=== PATIENT | female | born 1940 | race Caucasian/White ===

== ENCOUNTER 2016-06-20 07:07 | Day surgery (SDC) ==
[2014-10-15 11:42] VITALS: BMI 31.1
[2016-06-20] MEDS ORDERED: LIDOCAINE 1% 20 ML MDV ONE (07:10)
[2016-06-20] MEDS ORDERED: LIDOCAINE 1% 20 ML MDV ID ONE (07:18)
[2016-06-20] MEDS ORDERED: DIPRIVAN 20 ML VIAL IVP ONE (09:00)
[2016-06-20] MEDS ORDERED: VERSED ONE (09:00)
[2016-06-20 14:00] VITALS: BP 117/50; TEMP 96.8
--- NOTE | 2016-06-20 14:53 | OP ---
INDICATIONS FOR PROCEDURE: 76-year-old female presents complaining of dysphagia intermittently to solid foods only. She also has some post prandial fullness at times. MEDICATIONS: SEE ANESTHESIA NOTES. PROCEDURE: ENDOSCOPY, CARLYLE BIOPSY, GASTRIC BIOPSY, ENDOCLIP AND IRISH DILATATION. REPORT: The risks, benefits, alternatives and limitations were discussed in detail with the patient. Informed consent was obtained. After adequate sedation was achieved, the video endoscope was introduced in the posterior pharynx and esophagus under direct vision and easily advanced down to the second portion of the duodenum. I then slowly withdrew. The duodenal mucosa appeared unremarkable as did the duodenal bulb. The antrum and body were relatively unremarkable except for a small raised polypoid type nodule in the antrum. This was about 5 mm in size. I biopsied it several times. It did continuously ooze blood. I went ahead and biopsied the antrum and body for H. Pylori testing. The scope was retroflexed to look at the cardia and fundus which revealed several small fundic type polyps. I relooked at the small polypoid nodule on the antrum and it continued to ooze blood so I elected to place an endoclip over the top of it. Once this was placed, it did not ooze any additional blood. I would estimate only a couple cc's oozed. I then withdrew the scope back through the esophagus which revealed no abnormalities in its entire length. I advanced the scope back down the gastric lumen and I placed a guidewire and withdrew the scope. Over the guidewire I then easily advanced a 54 [place] dilator. The patient tolerated the procedure well with stable vital signs and pulse oximetry throughout. IMPRESSION: 1. SMALL POLYPOID ANTRAL NODULE ABOUT 5 MM IN SIZE BIOPSIED AND CLIPPED ABOVE. 2. SEVERAL SMALL FUNDIC TYPE POLYPS IN THE PROXIMAL BODY AND FUNDIC AREA. 3. SUCCESSFUL PASSIVE DILATATION OF THE ESOPHAGUS. RECOMMENDATIONS: 1. Await biopsy results to confirm benign nature. 2. Await H. Pylori; if it is positive, will initiate treatment. 3. Advised her to make sure she takes her time to cut and chew her food well , eat slowly and small meals throughout the day. 4. Will have her come back in the office and see us if she continues to have trouble or if there are any concerns. CC: DR. BELEN MERCADO
== END 2016-06-20 10:35 | disposition home or self-care (01) ==
LOC: SURG 07:07
PROVIDERS: ATTEND Internal Medicine Gastroenterology
DX: R13.10 Dysphagia, unspecified (principal); D13.1 Benign neoplasm of stomach; B96.81 Helicobacter pylori [H. pylori] as the cause of diseases classified elsewhere; K31.9 Disease of stomach and duodenum, unspecified
CPT/HCPCS: 87339

== ENCOUNTER 2016-06-28 13:57 | Emergency (ER) ==
[2016-06-28 14:02] VITALS: BP 189/90; TEMP 97.6; BMI 30.4
--- NOTE | 2016-06-28 15:12 | CT ---
EXAM: CT pelvis without contra HISTORY: Pain, fall COMPARISON: 09/17/2012 TECHNIQUE: CT pelvis performed without intravenous contrast. Coronal and sagittal reformatted imag es obtained. FINDINGS: Please see separate report CT lumbar spine regarding findings in the lumbar spine. Bones appear demineralized. There is right hip arthroplasty. There is mild to moderate osteoarthritis le ft hip with joint space narrowing and osteophyte formation. There is enthesopathy, left greater and lesser trochanter. Sacroiliac joints intact with mild degenerative change. No fracture or disloca tion. There is colonic diverticulosis. Patient status post hysterectomy. There is atherosclerosis . There is an electronic stimulator or in the right subcutaneous tissues that is incompletely image d. There is a number there is a 2.0 x 7.6 x 8.6 cm high attenuation collection with surrounding str anding in the subcutaneous tissues of the right gluteal region, consistent with hematoma. IMPRESSION: 1. Right gluteal subcutaneous hematoma measuring up to 8.6 cm. 2. No fracture or dislocation. 3. Right hip arthroplasty. 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
--- NOTE | 2016-06-28 15:13 | DI ---
EXAM: Right elbow three views HISTORY: Pain COMPARISON: None FINDINGS: No acute fracture or dislocation. Mild calcification about the medial and lateral epicon dyle may be due to old trauma or epicondylitis. Well marginated ossification near the coronoid may b e degenerative or due to old trauma or ossification center. No joint effusion. No focal soft tissue abnormality. IMPRESSION: No acute fracture or dislocation.
--- NOTE | 2016-06-28 15:13 | DI ---
Exam: Right shoulder three views History: Pain Findings: AP internal and external rotation as well as transscapular views were obtained and demons trates faint degenerative soft tissue calcifications in relationship to the right acromioclavicular joint. There is also a small amount of spurring noted. There is spurring seen arising from the sup erior aspect of the acromion process. Degenerative changes seen in relationship to the humeral tube rosity. Right humeral head in satisfactory relationship to the acromion process and glenoid. Right shoulder joint space appears normal in width. Impression: Arthritic changes of the right shoulder most evident at the level of the right acromioc lavicular joint and superior aspect of the acromion process as described.
--- NOTE | 2016-06-28 15:17 | CT ---
Examination: Noncontrast helical CT images of the lumbar spine. Comparison: 09/17/2012. Reason for study: Pain. FINDINGS: No acute fracture or listhesis. There is a small amount of artifact from the spinal elec trode and pedicle screws. T11-T12: Spinal electrode is noted without obvious central cord narrowing. There is mild foraminal stenosis on the left due to facet hypertrophy. T12-L1: Mild narrowing of the central canal combination of partially calcified disc and posterior t o the longitudinal ligament with mild foraminal narrowing bilaterally and artifact in the spine. El ectrode. L1-L2: Mild impression on the central canal with foraminal narrowing due to a combination of ligame ntous and disc hypertrophy with calcification and facet arthropathy. L2-L3: There is mild central canal narrowing due to a combination of partially calcified disc and l igamentous hypertrophy with foraminal narrowing bilaterally secondary to disc and facet hypertrophy. L3-L4: Typically benign appearing low density lesion in the L3 vertebral body with a small amount o f central canal narrowing secondary to eight calcified disc and ligamentous complex with mild forami nal narrowing. L4-L5: Bilateral pedicle screws with minimal central canal narrowing and minimal foraminal narrowin g secondary to calcified ligamentous and disc complex with facet hypertrophy. L5-S1: Marked narrowing of the intervertebral body disc space height with a partially calcified broa d-based disc bulge and ligamentous complex without significant foraminal stenosis. Impression: 1. No acute fracture or listhesis. 2. 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
--- NOTE | 2016-06-28 15:36 | ED.PDOC ---
General ED Provider: Dr. REGAN SCHULTE Chief Complaint: Fall Stated Complaint: injury fall Time Seen by Physician: 14:00 Mode of Arrival: Walk-In Information Source: Patient Exam Limitations: No limitations Primary Care Provider: GEN GLOVER Nursing and Triage Documentation Reviewed and Agree: Yes Trauma/Injury Complaint Exam - Trauma Complaint/Exam Location of Pain or Injury: Reports: Other (buttoc pain) Onset/Duration: 1 hr Symptoms Are: Still present Timing of Treatment: Immediate Initial Severity: Moderate Current Severity: Moderate Character: Reports: Pressure Aggravating: Reports: None (lost balance and fell standing postion has right elbow , shoulder and buttock pain ) Alleviating: Reports: None Related History: Reports: Similar episode Nexus Low Risk Criteria: No post-midline CS tender, No evidence of intoxicat., No Altered LOC, No focal neuro deficit, No distracting injuries Glascow Coma Scale (see protocol): 15 Skin Findings: Present: Tenderness Differential Diagnoses: Sprain, Strain Review of Systems - Review Of Systems Constitutional: Reports: No symptoms Eyes: Reports: No symptoms Ears, Nose, Mouth, Throat: Reports: No symptoms Respiratory: Reports: No symptoms Cardiac: Reports: No symptoms GI: Reports: No symptoms : Reports: No symptoms Musculoskeletal: Reports: Joint pain (right elbow, right shoulder ) Skin: Reports: No symptoms Neurological: Reports: No symptoms Endocrine: Reports: No symptoms Hematologic/Lymphatic: Reports: No symptoms All Other Systems: Reviewed and Negative Past Medical History - Past Medical History Previously Healthy: Yes Endocrine: Reports: None Cardiovascular: Reports: None Respiratory: Reports: None Hematological: Reports: None Gastrointestinal: Reports: None Genitourinary: Reports: None Neuro/Psych: Reports: None Musculoskeletal: Reports: None Cancer: Reports: None Last Menstrual Period: 2005 - Surgical History General Surgical History: Reports: None - Family History Family History: Reports: None - Social History Smoking Status: Never smoker Hx Substance Use: No Alcohol Screening: None - Immunizations Tetanus Shot up to Date: Yes Physical Exam - Physical Exam Appearance: Well-appearing, No pain distress, Well-nourished Eyes: NALINI, EOMI, Conjunctiva clear ENT: Ears normal, Nose normal, Oropharynx normal Respiratory: Airway patent, Breath sounds clear, Breath sounds equal, Respirations nonlabored Cardiovascular: RRR, Pulses normal, No rub, No murmur GI/: Soft, Nontender, No masses, Bowel sounds normal, No Organomegaly Musculoskeletal: Limited ROM ( right shoulder ) Skin: Warm, Dry (warm firm prominence right buttock) Neurological: Sensation intact, Motor intact, Reflexes intact, Cranial nerves intact, Alert, Oriented Psychiatric: Affect appropriate, Mood appropriate Critical Care Note - Critical Care Note Total Time (mins): 0 Course - Course Orders, Labs, Meds: Orders Category Date Time Status CT LUMBAR SPINE W/O CONTRAST Stat RADS 06/28/16 14:[address] PELVIS W/O CONTRAST Stat RADS 06/28/16 14:16 Completed ELBOW, RIGHT MIN 3 VIEWS Stat RADS 06/28/16 14:15 Completed SHOULDER, RIGHT MIN 2V Stat RADS 06/28/16 14:15 Completed Vital Signs: Temp Pulse Resp BP Pulse Ox 06/28/16 13:57 97.6 F 69 20 189/90 H 96 Departure - Departure Time of Disposition: 15:39 Disposition: HOME SELF-CARE Discharge Problem: Falls, Hematoma Instructions: Hematoma (ED) Condition: Good Pt referred to PMD for follow-up: No Additional Instructions: Please call your Family Physician as soon as possible to schedule a follow-up appointment. Allergies/Adverse Reactions: Allergies No Known Allergies Allergy (Unverified 10/15/14 11:50) Home Medications: Ambulatory Orders Carvedilol [Coreg] 6.25 mg PO BIDWM 10/15/14 Cyclobenzaprine HCl [Flexeril] 10 mg PO BID PRN 10/15/14 Escitalopram Oxalate [Lexapro] 20 mg PO DAILY 10/15/14 Nifedipine [Procardia Xl] 30 mg PO DAILY 10/15/14 Esomeprazole Magnesium 40 mg PO DAILY 03/02/16 Fentanyl 1 each TD Q72H 03/02/16 Levothyroxine Sodium 100 mcg PO DAILY 03/02/16 Lisinopril 20 mg PO DAILY 03/02/16 Azelastine HCl [Astelin 0.1%] 2 spray NS BID 06/20/16 Morphine Sulfate [Morphine 2 mg/ml Syringe] 0.3746 mg IMPLANT DAILY 06/20/16 Bupropion HCl [Wellbutrin Xl] 150 mg PO BEDTIME #30 06/22/16 Amoxicillin 500 mg PO BID 06/28/16 Metronidazole 500 mg PO QID 06/28/16
== END 2016-06-28 15:45 | disposition home or self-care (01) ==
LOC: ED 13:57
DX: M25.511 Pain in right shoulder (principal); M25.521 Pain in right elbow; M54.5 Low back pain; T14.8 Other injury of unspecified body region; W18.39XA Other fall on same level, initial encounter
CPT/HCPCS: 99283

== ENCOUNTER 2016-11-16 13:31 | Outpatient (CLI) ==
--- NOTE | 2016-11-16 14:05 | DI ---
EXAM: Single PA view of the chest and three views of the left chest wall/ribs HISTORY: Left-sided chest wall pain. COMPARISON: Chest x-ray 03/26/2015 FINDINGS: Cardiomediastinal silhouette is unremarkable. There is no pneumothorax or pleural effusio n. There is no consolidation, nodule or mass. The left ribs demonstrate no cortical irregularity o r displaced fracture. There is no lytic or blastic lesion identified. IMPRESSION: No acute abnormality or displaced fracture of the left ribs.
== END 2016-11-16 13:32 | disposition home or self-care (01) ==
LOC: RAD 13:31
PROVIDERS: ATTEND Family Medicine
DX: R07.89 Other chest pain (principal)

== ENCOUNTER 2017-04-03 08:49 | Day surgery (SDC) ==
[2017-04-03] MEDS ORDERED: VERSED ONE (12:05)
[2017-04-03] MEDS ORDERED: DIPRIVAN 20 ML VIAL IVP ONE (12:05)
[2017-04-03] MEDS ORDERED: SUBLIMAZE ONE (12:05)
[2017-04-03 13:14] VITALS: BP 160/81; TEMP 98.2
--- NOTE | 2017-04-04 10:24 | OP ---
INDICATIONS FOR PROCEDURE: 77-year-old female presents for endoscopy evaluation. She has intermittent dysphagia. She has had endoscopy with dilatation in the past which has been beneficial. She also has a history of colon polyps, the last colonoscopy two years ago with over ten adenomatous polyps being found and a good to fair prep in place although she tells me that she did not drink her morning prep for her presenting colonoscopy today. MEDICATIONS: SEE ANESTHESIA NOTES. PROCEDURE: 1. ENDOSCOPY, CARLYLE BIOPSY, MAURITANIAN DILATATION 2. COLONOSCOPY, SNARE POLYPECTOMY. REPORT: The risks, benefits, alternatives and limitations were discussed in detail with the patient. Informed consent was obtained. After adequate sedation was achieved, the video endoscope was introduced in the posterior pharynx and esophagus under direct vision. I easily advanced down to the second portion of the duodenum. I then slowly withdrew in a circumferential manner examining the mucosa quite carefully. The duodenal mucosa appeared unremarkable as did the duodenal bulb. The antrum and body were moderately erythematous. There was some nodular inflammation. I obtained two biopsies from the antral wall and from the body for H. Pylori testing. The scope was retroflexed to look at the cardia and fundus which was relatively unremarkable. The scope was anteflexed and withdrawn back through the esophagus which appeared unremarkable its entire length. I advanced the scope back down the gastric lumen and placed the guidewire and withdrew the scope. Over the guidewire I easily advanced a 54 [place] dilator. The patient tolerated the procedure well with stable vital signs and pulse oximetry throughout. The patient's bed was turned. A digital rectal exam revealed good tone, no mass. The colonoscope was introduced into the rectum and advanced under direct visual guidance to the cecum. The cecum was identified by the appendiceal orifice and IC valve. Unfortunately her prep was fair at best. There was mucus adherent stool scattered throughout the entire colon. I washed and rinsed this off as best as I could as I advanced the scope and then again as I withdrew the scope. I withdrew the scope in a circumferential manner examining the mucosa quite carefully. I looked on the proximal and distal side of folds and flexures as best as possible. In the ascending colon there is a small sessile 5 mm polyp that I removed and destroyed using a snare. In the descending colon there was a similar polyp that I destroyed using a snare. No other abnormalities were noted throughout the colon including on retroflex views of the anal canal. Again, the prep was fair at best with the patient not drinking her recommended morning split dose of the prep. Withdrawal time is 9 minutes and 56 seconds. The patient tolerated the procedure well with stable vital signs and pulse oximetry throughout. IMPRESSION: 1. SUCCESSFUL PASSIVE DILATATION OF THE ESOPHAGUS 2. MODERATE GASTRITIS 3. TWO SMALL COLON POLYPS DESTROYED 4. FAIR PREP RECOMMENDATIONS: 1. Strict reflux precautions. 2. Cut and chew food well. 3. Limit NSAIDs. 4. Await H. Pylori if positive will initiate treatment. 5. Due to the fair prep I recommend repeat colonoscopy examination again in one year since she does have a history of numerous adenomatous polyps in the past. I reinforce the need to follow the guidelines for taking the prep completely. 6. Office visit as needed. CC: DR. BELEN MERCADO
== END 2017-04-03 13:25 | disposition home or self-care (01) ==
LOC: SURG 08:49
PROVIDERS: ATTEND Internal Medicine Gastroenterology
DX: Z09 Encounter for follow-up examination after completed treatment for conditions other than malignant neoplasm (principal); Z86.010 Personal history of colon polyps; K29.70 Gastritis, unspecified, without bleeding; K63.5 Polyp of colon; R13.19 Other dysphagia
CPT/HCPCS: 87339

== ENCOUNTER 2017-09-24 11:41 | Outpatient (CLI) ==
--- NOTE | 2017-09-24 13:51 | DI ---
EXAM: Chest two views HISTORY: Dyspnea COMPARISON: 11/16/2016 TECHNIQUE: Two views of the chest were performed FINDINGS: No airspace consolidation. Granulomatous calcification. There is no pleural effusion or pneumothorax. The heart is normal in size. The mediastinal contour is normal. There are no acute a bnormalities of the bones. IMPRESSION: No acute cardiopulmonary process.
== END 2017-09-24 11:42 | disposition home or self-care (01) ==
LOC: RAD 11:41
PROVIDERS: ATTEND Family Medicine
DX: R06.00 Dyspnea, unspecified (principal)

== ENCOUNTER 2017-11-30 10:31 | Outpatient (CLI) ==
--- NOTE | 2017-11-30 12:38 | CT ---
EXAM: CT head without contrast. HISTORY: Headache. Nausea. COMPARISON: 04/20/2008. TECHNIQUE: Multiple axial images of the brain were obtained from the skull base through the vertex w ithout intravenous contrast. Multiplanar reformats were provided. FINDINGS: There is no intracranial hemorrhage or extraaxial collection. The villavicencio-white differentiat ion is maintained without evidence for acute large vascular territory infarction. There are areas of periventricular and subcortical white matter low attenuation. The cortical sulci and cerebral ventr icles are symmetrically enlarged. The basal cisterns are well visualized. There is no hydrocephalus , mass effect, or midline shift. The paranasal sinuses and mastoid air cells are clear. The calvari um is intact. IMPRESSION: 1. No acute intracranial abnormality. 2. Chronic small vessel ischemic changes and atrophy.
--- NOTE | 2017-11-30 12:44 | CT ---
EXAM: CT cervical spine without contrast. HISTORY: Neck pain. COMPARISON: None available. TECHNIQUE: Multiple axial images of the cervical spine were obtained without intravenous contrast. Images were reformatted in the sagittal and coronal planes. FINDINGS: There is normal curvature and alignment. Vertebral body heights are maintained. No fract ure or subluxation is seen. The prevertebral soft tissues are unremarkable. C2-3: Facet arthropathy without neural compromise. C3-4: Uncovertebral hypertrophy and facet arthropathy with moderate right and mild left neural gia inal narrowing. C4-5: Uncovertebral hypertrophy and facet arthropathy with moderate neural foraminal narrowing bilat erally. C5-6: Disc osteophyte formation, uncovertebral hypertrophy and facet arthropathy with mild central c anal stenosis and mild right and moderate to severe left neural foraminal narrowing. C6-7: Disc osteophyte formation, uncovertebral hypertrophy and facet arthropathy with mild moderate central canal stenosis and moderate to severe right neural foraminal narrowing. C7-T1: No neural compromise. IMPRESSION: Multilevel degenerative changes, greatest at C5-6 and C6-7.
--- NOTE | 2017-11-30 12:59 | CT ---
EXAM: CT lumbar spine without contrast. HISTORY: Low back pain. COMPARISON: 06/28/2016. TECHNIQUE: Multiple axial images of the lumbar spine were obtained without intravenous contrast. Im ages were reformatted in the sagittal and coronal planes. FINDINGS: There has been previous fusion of the posterior elements from L3-4 through L5-S1. Screws are present through the pedicles of L4 and L5. Hardware appears intact. There is approximately 0.2 cm anterolisthesis of L3 on L4 per alignment is otherwise normal. There is mild right convex curvatu re centered near L3. Vertebral body heights are maintained without fracture. Paravertebral soft tis sues without acute abnormality. Benign adrenal nodules seen bilaterally. Atherosclerotic calcificat ions are present. Colonic diverticulosis noted. Osteoarthritis of both sacroiliac joints, greater o n the right noted. T12-L1: Disc osteophyte formation and facet arthropathy with flattening of the ventral thecal sac an d moderate bilateral neural foraminal narrowing. L1-2: Disc osteophyte formation, facet arthropathy and thickening of ligamentum flavum with moderate central canal stenosis and moderate right and severe left neural foraminal narrowing. L2-3: Disc osteophyte formation, facet arthropathy and thickening of ligamentum flavum with mild divya tral canal stenosis and mild right and severe left neural foraminal narrowing. L3-4: Disc osteophyte formation and facet arthropathy with flattening of the ventral thecal sac. L4-5: Disc osteophyte formation and facet arthropathy with mild central canal stenosis and right grabiel ral foraminal narrowing. L5-S1: Disc osteophyte formation and facet arthropathy with moderate neural foraminal narrowing. Buyer Assistant view demonstrates a right-sided electronic device projecting over the iliac wing. IMPRESSION: 1. No fracture. 2. Multilevel degenerative changes as described, not significantly changed since the prior study.
== END 2017-11-30 10:32 | disposition home or self-care (01) ==
LOC: RAD 10:31
PROVIDERS: ATTEND Family Medicine
DX: G89.4 Chronic pain syndrome (principal)

== ENCOUNTER 2018-03-05 08:44 | Day surgery (SDC) | payer OTHER ==
[2018-03-05] MEDS ORDERED: DIPRIVAN 20 ML VIAL IVP ONE (11:41)
[2018-03-05] MEDS ORDERED: SUBLIMAZE ONE (11:41)
[2018-03-05] MEDS ORDERED: VERSED ONE (11:41)
[2018-03-05 16:06] VITALS: BP 128/56; TEMP 98.4
--- NOTE | 2018-03-06 13:21 | OP ---
INDICATIONS FOR PROCEDURE: 78-year-old female presents for endoscopy exam. She complains of intermittent chest pressure. She states like she feels full after she eats at times. She has had a negative cardiac workup. She has been doing well over the last two weeks. She states her symptoms have subsided. She occasionally feels like she has a little bit of difficulty swallowing as well. MEDICATIONS: SEE ANESTHESIA NOTES. PROCEDURE: ENDOSCOPY, CARLYLE BIOPSY, GASTRIC BIOPSY, AZERBAIJANI DILATATION. REPORT: The risks, benefits, alternatives and limitations were discussed in detail with the patient. Informed consent was obtained. After adequate sedation was achieved, the video endoscope was introduced in the posterior pharynx and esophagus under direct vision and easily advanced down to the second portion of the duodenum. I then slowly withdrew. The duodenal mucosa appeared unremarkable as did the duodenal bulb. The antrum and body were relatively unremarkable. In the antrum there was a small inflammatory type nodule. It was about 6 mm in size and raised. It was on the greater curvature. It was biopsied for histologic review. Two biopsies from the antral wall and body obtained for H. Pylori test. The scope was retroflexed to look at the cardia and fundus which was unremarkable. The scope was anteflexed and withdrawn back through the esophagus which was unremarkable. The scope was advanced back down the gastric lumen. I placed a gastric wire and I withdrew the scope. Over the wire, I easily advanced a 54 [place] dilator. The patient tolerated the procedure well with stable vital signs and pulse oximetry throughout. IMPRESSION: 1. INFLAMMATORY TYPE NODULE IN THE ANTRUM, BIOPSIED. 2. OTHERWISE UNREMARKABLE EXAM. 3. SUCCESSFUL PASSIVE DILATATION OF THE ESOPHAGUS. RECOMMENDATIONS: 1. She is currently doing better. I recommend strict reflux precautions. I suggested she eat small meals throughout the day. I also suggested that she try an [id number] H2 teddy such as Pepcid AC p.r.n. for breakthrough chest discomfort and nausea associated with larger meals. 2. Will see her back in the office as needed. 3. Await H. Pylori and if positive, will initiate treatment. CC: DR. BELEN MERCADO
== END 2018-03-05 12:50 | disposition home or self-care (01) ==
LOC: SURG 08:44
PROVIDERS: ATTEND Internal Medicine Gastroenterology
DX: R07.89 Other chest pain (principal); R13.10 Dysphagia, unspecified; R22.9 Localized swelling, mass and lump, unspecified
CPT/HCPCS: 87339

== ENCOUNTER 2018-07-23 07:07 | Day surgery (SDC) | payer OTHER ==
[2018-07-23 07:59] VITALS: TEMP 97.6
[2018-07-23] MEDS ORDERED: LIDOCAINE 1% 20 ML MDV ID STA (08:00)
[2018-07-23] MEDS ORDERED: DIPRIVAN 20 ML VIAL IVP ONE (09:40)
[2018-07-23] MEDS ORDERED: VERSED ONE (09:40)
[2018-07-23 12:29] VITALS: BP 132/67
--- NOTE | 2018-07-24 10:34 | OP ---
INDICATIONS FOR PROCEDURE: Temitope presents for colonoscopy exam. She has a past history of adenomatous polyps with her last colonoscopy 3 years ago. MEDICATIONS: SEE ANESTHESIA NOTES. PROCEDURE: COLONOSCOPY. SNARE POLYPECTOMY. REPORT: The risks, benefits, alternatives and limitations were discussed in detail with the patient. Informed consent was obtained. After adequate sedation was achieved, a digital rectal exam revealed good tone, no masses. The colonoscope was introduced into the rectum and advanced under direct visual guidance to the cecum. The cecum was identified by the appendiceal orifice and IC valve. I then slowly withdrew the scope in circumferential manner and examined the mucosa quite carefully. I looked on the proximal and distal sides of folds and flexures as best as possible. I was able to retroflex the scope in the right colon and the left colon to increase visualization. In the ascending colon there was a 6 or 7 mm semi-sessile polyp and I removed this by snare technique. In the mid and distal transverse colon there was 3 polyps ranging in size from 5-6mm, they were semi-sessile and all three were removed by snare technique. There is scattered small mouth diverticulosis noted in the sigmoid, only a few. Retroflex view of the anal canal was unremarkable. The prep was good and no other abnormalities were noted. The patient tolerated the procedure well with stable vital signs and pulse oximetry throughout. IMPRESSION: 1. 4 polyps successfully removed 2. Diverticulosis RECOMMENDATIONS: 1. High fiber diet 2. Office visit as needed 3. Await polyp pathology and if everything is benign. I recommend repeat colonoscopy examination again in 3 years or sooner if signs or symptoms would indicate otherwise. Dr. Nimesh Farley. [facility] CENTERHaritha
== END 2018-07-23 11:40 | disposition home or self-care (01) ==
LOC: SURG 07:07
PROVIDERS: ATTEND Internal Medicine Gastroenterology
DX: Z86.010 Personal history of colon polyps (principal); D12.2 Benign neoplasm of ascending colon; D12.3 Benign neoplasm of transverse colon

== ENCOUNTER 2018-09-10 12:01 | Outpatient (CLI) ==
--- NOTE | 2018-09-10 12:53 | CT ---
EXAM: CT of the abdomen pelvis without contrast History: Left flank pain. Left lower quadrant abdominal pain. Comparison: CT abdomen pelvis 12/13/2011 Technique: Multiplanar CT images through the abdomen pelvis were obtained without the administration of IV contrast Findings: Lung bases are clear. No acute osseous abnormalities. Degenerative changes of the spine. Postsurgical changes of the lumbar spine. Hemangioma within the L3 vertebral body. Spinal stimula tor device. Status post cholecystectomy. No focal liver or splenic lesions. No peripancreatic inflammation. St able small benign bilateral adrenal adenomas. No renal stones and no hydronephrosis. No perinephric stranding. Atherosclerotic vascular calcifications. No bowel obstruction. Colonic diverticulosis. Mild focal dilatation of the distal appendix but no acute periappendiceal inflammation. Bladder is not well distended. Evaluation of the pelvis is somewhat limited due to beam hardening artifact fro m the right hip arthroplasty. No perirectal inflammation. Impression: 1. No acute intra-abdominal or pelvic process. 2. Colonic diverticulosis. 3. No renal stones and no hydronephrosis. 4. Stable small benign bilateral adrenal adenomas. 5. Mild focal dilatation of the distal appendix but no evidence for acute appendicitis
== END 2018-09-10 12:02 | disposition home or self-care (01) ==
LOC: RAD 12:01
PROVIDERS: ATTEND Family Medicine
DX: M54.5 Low back pain (principal)
CPT/HCPCS: 74176

== ENCOUNTER 2018-09-30 12:52 | Emergency (ER) ==
[2018-09-30 12:57] VITALS: BP 156/79; TEMP 98.9; BMI 31.8
--- NOTE | 2018-09-30 13:57 | DI ---
EXAM: Two views of the chest. History: Cough. Comparison: Chest radiograph 09/24/2017. Findings: Heart size is normal. No focal consolidation. No appreciable pleural fluid and no pneumo thorax. Calcified granulomas are again seen within the thorax. No acute osseous abnormalities. Impression: No acute cardiopulmonary process
[2018-09-30] MEDS ORDERED: ROCEPHIN IM STA (14:33)
[2018-09-30] MEDS ORDERED: LIDOCAINE HCL 1% SDV IM STA (14:33)
[2018-09-30] MEDS ORDERED: ROCEPHIN 1 GM in SODIUM CHLORIDE 50 ML IV STA (14:36)
[2018-09-30] MEDS ORDERED: SODIUM CHLORIDE 1,000 ML IV STA (14:36)
--- NOTE | 2018-09-30 14:57 | ED.PDOC ---
General ED Provider: Dr. REGAN SCHULTE Chief Complaint: Weakness Stated Complaint: weakness Time Seen by Physician: 13:00 (seen with anson ) Mode of Arrival: Walk-In Information Source: Patient Exam Limitations: No limitations Primary Care Provider: GEN GLOVER Nursing and Triage Documentation Reviewed and Agree: Yes Does patient meet sepsis criteria?: No (congestion, cough) System Inflammatory Response Syndrome: Not Applicable Sepsis Protocol: For patient's 13 years and over: Temp is 96.8 and below OR 101 and greater Pulse >90 BPM Resp >20/minute Acutely Altered Mental Status Are patient's symptoms suggestive of a new infection, such as: -Pneumonia -Skin, Soft Tissue -Endocarditis -UTI -Bone, Joint Infection -Implantable Device -Acute Abdominal Infection -Wound Infection -Meningitis -Blood Stream Catheter Infection -Unknown Miscellaneous Complaint Exam - Complex/Multi-System Complaint/Exam Symptoms Are: Still present Initial Severity: Mild Current Severity: Mild Location of Pain: no pain Pain Radiates to: n/a Character: n/a Aggravating: n/a Alleviating: n/a Associated Signs and Symptoms: Reports: Weakness, Cough, Back pain, Dysuria. Denies: Decreased responsiveness, Confusion, Agitation, Dizziness, Syncope, Headache, Short of air, Wheezing, Hemoptysis, Chest pain, Palpitations, Edema, Nausea, Vomiting, Diarrhea, Abdominal pain, Hematemesis, Melena, Decreased oral intake, Fever, Diaphoresis, Immunocompromised, Anticoagulation Therapy, Recent medication changes, Indwelling director medical science, Prior MRSA, Prior VRE, Recent trauma, Remote trauma Recent Echo/LV Function: No Respiratory Distress: None JVD Present: No Tachypnea Present: No Abdominal Findings: Present: Normal findings Glascow Coma Scale (see protocol): 15 Meningeal Signs Positive: No Focal Weakness: Present: None Gait: Normal Gag Reflex Present: Yes Babinski Sign: Negative Right, Negative Left Joint Swelling Present: No In-Dwelling Device Present: No Differential Diagnosis: Metabolic Abnormality Quality Indicators for AMI: EKG in 10min. ( ) Quality Indicator For Non-Traumatic Chest Pain/Syncope: EKG Performed Review of Systems - Review Of Systems Constitutional: Reports: Chills, Malaise Eyes: Reports: No symptoms Ears, Nose, Mouth, Throat: Reports: No symptoms Respiratory: Reports: Cough Cardiac: Reports: No symptoms GI: Reports: No symptoms : Reports: Dysuria Musculoskeletal: Reports: Back pain Skin: Reports: No symptoms Neurological: Reports: No symptoms Endocrine: Reports: No symptoms Hematologic/Lymphatic: Reports: No symptoms All Other Systems: Reviewed and Negative Past Medical History - Past Medical History Previously Healthy: Yes Endocrine: Reports: None Cardiovascular: Reports: None Respiratory: Reports: None Hematological: Reports: None Gastrointestinal: Reports: None Genitourinary: Reports: None Neuro/Psych: Reports: None Musculoskeletal: Reports: None Cancer: Reports: None Last Menstrual Period: NA - Surgical History General Surgical History: Reports: None - Family History Family History: Reports: None - Social History Smoking Status: Never smoker Hx Substance Use: No Alcohol Screening: None - Immunizations Tetanus Shot up to Date: Yes Physical Exam - Physical Exam Appearance: Well-appearing, No pain distress, Well-nourished Eyes: NALINI, EOMI, Conjunctiva clear ENT: Ears normal, Nose normal, Oropharynx normal Respiratory: Airway patent, Breath sounds clear, Breath sounds equal, Respirations nonlabored Cardiovascular: RRR, Pulses normal, No rub, No murmur GI/: Soft, Nontender, No masses, Bowel sounds normal, No Organomegaly Musculoskeletal: Normal strength, ROM intact, No edema, No calf tenderness Skin: Warm, Dry, Normal color Neurological: Sensation intact, Motor intact, Reflexes intact, Cranial nerves intact, Alert, Oriented Psychiatric: Affect appropriate, Mood appropriate Interpretation - Dedenter Rate: Rey Rhythm: Sinus - EKG Interpretation Rate: Rey Rhythm: Sinus Ectopy: None [place]: NL ST Segment: Normal Physician Notification - Case Discussed Physician Notified: pmd Time of Notification: 14:58 (iv fluid with iv antibiotics ask pt to see him in am) Critical Care Note - Critical Care Note Total Time (mins): 0 Course - Course Hematology/Chemistry: 09/30/18 13:26 09/30/18 13:26 Orders, Labs, Meds: Lab Review 09/30/18 09/30/18 09/30/18 13:26 13:26 13:42 WBC 9.93 RBC 4.08 L Hgb 12.2 Hct 37.3 MCV 91.4 MCH 29.9 MCHC 32.7 RDW Coeff of Ashwin 13.2 Plt Count 331 Immature Gran % (Auto) 0.2 Neut % (Auto) 65.8 Lymph % (Auto) 25.2 [place] % (Auto) 7.0 Eos % (Auto) 1.4 Baso % (Auto) 0.4 Immature Gran # (Auto) 0.0 Neut # (Auto) 6.5 Lymph # (Auto) 2.5 Hubbard # (Auto) 0.7 Eos # (Auto) 0.1 Baso # (Auto) 0.0 Sodium 138.8 Potassium 3.43 L Chloride 100.1 Carbon Dioxide 28.0 Anion Gap 14.13 BUN 12.4 Creatinine 0.88 Estimated GFR (MDRD) 62.00 BUN/Creatinine Ratio 14.09 Glucose 124.0 H Calcium 8.92 Total Bilirubin 0.49 AST 36.3 H ALT 27.6 Alkaline Phosphatase 89.6 Total Protein 7.70 Albumin 4.35 Globulin 3.35 Albumin/Globulin Ratio 1.29 Urine Color Yellow Urine Clarity Cloudy Urine pH 5.5 Ur Specific [place] 1.015 Urine Protein 1+ Urine Glucose (UA) Negative Urine Ketones Negative Urine Blood 2+ Urine Nitrite Positive Urine Bilirubin Negative Urine Urobilinogen 0.2 Ur Leukocyte Esterase 1+ Urine Microscopic RBC 0-2 Urine Microscopic WBC Tntc Ur Squamous Epith Cells 0-2 Urine Bacteria 2+ Orders Category Date Time Status EKG-(ED ONLY) Stat CARDIO 09/30/18 13:19 Completed CBC W/ AUTO DIFF Stat LAB 09/30/18 13:26 Completed COMPREHENSIVE METABOLIC PANEL Stat LAB 09/30/18 13:26 Completed URINALYSIS C & S IF INDICATED Stat LAB 09/30/18 13:42 Completed URINE CULTURE Stat LAB 09/30/18 13:42 Received Ceftriaxone Sodium [Rocephin] 1 gm MEDS 09/30/18 14:36 Active 0.9 % Sodium Chloride [Sodium Chloride] 50 ml IV ONCE Sodium Chloride 0.9% [Sodium Chloride] 1,000 ml MEDS 09/30/18 14:36 Active IV BOLUS CHEST, 2 VIEWS PA & LAT Stat RADS 09/30/18 13:19 Completed Medications Generic Name Dose Route Start Last Admin Trade Name Freq PRN Reason Stop Dose Admin Sodium Chloride 1,000 mls @ 1,000 mls/hr 09/30/18 14:36 Sodium Chloride IV 09/30/18 15:35 BOLUS STA Ceftriaxone Sodium 1 gm/ 50 mls @ 75 mls/hr 09/30/18 14:36 Sodium Chloride IV 09/30/18 15:15 ONCE STA Vital Signs: Temp Pulse Resp BP Pulse Ox 09/30/18 12:52 98.9 F 67 20 156/79 H 94 L Departure - Departure Time of Disposition: 14:58 Disposition: HOME SELF-CARE Discharge Problem: UTI (urinary tract infection) Qualifiers: Urinary tract infection type: site unspecified Hematuria presence: with hematuria Qualified Code(s): N39.0 - Urinary tract infection, site not specified ; R31.9 - Hematuria, unspecified Instructions: Urinary Tract Infection in Women (ED) Condition: Good Pt referred to PMD for follow-up: Yes IPMP verified?: No Additional Instructions: Please call your Family Physician as soon as possible to schedule a follow-up appointment. Allergies/Adverse Reactions: Allergies No Known Allergies Allergy (Verified 09/30/18 13:03) Home Medications: Ambulatory Orders Carvedilol [Coreg] 6.25 mg PO BIDWM 10/15/14 Escitalopram Oxalate [Lexapro] 20 mg PO DAILY 10/15/14 Nifedipine [Procardia Xl] 30 mg PO DAILY 10/15/14 Levothyroxine Sodium 100 mcg PO DAILY 03/02/16 Lisinopril 20 mg PO DAILY 03/02/16 Morphine Sulfate [Morphine 2 mg/ml Syringe] 0.3746 mg IMPLANT DAILY 06/20/16 Bupropion HCl [Wellbutrin Xl] 150 mg PO DAILY 09/30/18 Esomeprazole Magnesium [Nexium] 40 mg PO DAILY 09/30/18 Montelukast Sodium [Singulair] 10 mg PO BEDTIME 09/30/18 Multivitamin [Multivitamin Tablet] 1 tab PO DAILY 09/30/18 Trospium Chloride 20 mg PO BID 09/30/18
[2018-09-30] MEDS ORDERED: ROCEPHIN ONE (15:02)
== END 2018-09-30 16:00 | disposition home or self-care (01) ==
LOC: ED 12:52
DX: R53.1 Weakness (principal); R05 Cough; M54.9 Dorsalgia, unspecified; R30.0 Dysuria; R53.81 Other malaise; N39.0 Urinary tract infection, site not specified; R31.9 Hematuria, unspecified
CPT/HCPCS: 36415; 80053; 81001; 85025; 87086; 87186; 93005; 93010; 96361; 96365; 99283

== ENCOUNTER 2021-07-26 13:49 | Inpatient (IN) ==
[2021-07-26 15:57] VITALS: BMI 29.8
[2021-07-26] MEDS ORDERED: SODIUM CHLORIDE 1,000 ML IV ONE (16:30)
[2021-07-26] MEDS ORDERED: LOVENOX SUBCUT ONE (16:32)
[2021-07-26 16:37] LABS: BASOPHILS # (AUTO) 0.1 K/uL (0-0.2); BASOPHILS % (AUTO) 0.4 % (0.0-3.0); EOSINOPHILS # (AUTO) 0.1 K/ul (0.0-0.7); EOSINOPHILS % (AUTO) 0.9 % (0.0-7.0); HEMATOCRIT 38.4 % (37.0-47.0); HEMOGLOBIN 12.8 g/dl (12.0-16.0); IMMATURE GRANULOCYTE % (AUTO) 0.2 % (0.0-5.0); LYMPHOCYTES # (AUTO) 2.9 K/uL (0.60-3.4); LYMPHOCYTES % (AUTO) 26.1 (10.0-50.0); MEAN CORPUSCULAR HEMOGLOBIN 30.4 pg (27.0-31.0); MEAN CORPUSCULAR HGB CONC 33.3 (31.8-35.4); MEAN CORPUSCULAR VOLUME 91.2 fl (81.0-99.0); MONOCYTES # (AUTO) 0.8 K/uL (0.4-2.0); MONOCYTES % (AUTO) 7.1 (0-10); NEUTROPHILS # (AUTO) 7.3 K/ul (2.0-6.9); NEUTROPHILS % (AUTO) 65.3 % (42.2-75.2); PLATELET COUNT 310 10^3/uL (140-440); RDW COEFFICIENT OF VARIATION 12.5 % (11.6-14.8); RED BLOOD COUNT 4.21 10^6/ul (4.20-5.40); WHITE BLOOD COUNT 11.14 K/ul (4.6-10.2)
[2021-07-26 16:52] LABS: ALANINE AMINOTRANSFERASE 18.7 U/L (0-35); ALBUMIN 4.75 g/dL (3.5-5.0); ALKALINE PHOSPHATASE 79.3 U/L (53-141); ASPARTATE AMINO TRANSFERASE 60.4 U/L (14-36); BILIRUBIN,TOTAL 0.47 mg/dL (0.2-1.3); BLOOD UREA NITROGEN 31.6 mg/dL (7-17); CALCIUM 9.17 mg/dL (8.4-10.2); CARBON DIOXIDE 31.2 mmol/L (22-30.0); CHLORIDE 98.4 mmol/L (98-107); CREATININE 1.63 mg/dL (0.60-1.30); GLUCOSE 111.7 mg/dL (74-106); POTASSIUM 3.85 mmol/L (3.5-5.1); SODIUM 137.6 mmol/L (134.5-145); TOTAL PROTEIN 8.48 g/dL (6.3-8.2)
[2021-07-26] MEDS: SODIUM CHLORIDE 1,000 ML IV SCH (17:29)
[2021-07-26 20:49] LABS: BILIRUBIN,URINE Negative (NEGATIVE); CLARITY,URINE Clear (CLEAR); COLOR,URINE Yellow (YELLOW); GLUCOSE, URINE (UA) Negative (NEGATIVE); KETONES,URINE Negative (NEGATIVE); LEUKOCYTE ESTERASE ,URINE Trace (NEGATIVE); NITRITE,URINE Negative (NEGATIVE); PROTEIN,URINE Negative (NEGATIVE); URINE, BLOOD Negative (NEGATIVE); UROBILINOGEN,URINE 0.2 (0.2)
[2021-07-26 20:57] LABS: URINE WBC, MICROSCOPIC 0-2 (0-2)
[2021-07-26 20:58] LABS: AMORPHOUS SEDIMENT,UR TRACE (NOT PRESENT); BACTERIA,URINE TRACE (NOT PRESENT); HYALINE CASTS, URINE 0-2 (NOT PRESENT)
[2021-07-27] MEDS: SODIUM CHLORIDE 1,000 ML IV SCH ×3 (03:03→14:47)
[2021-07-27 05:08] LABS: BASOPHILS % (AUTO) 0.3 % (0.0-3.0); EOSINOPHILS # (AUTO) 0.1 K/ul (0.0-0.7); EOSINOPHILS % (AUTO) 1.1 % (0.0-7.0); HEMATOCRIT 33.4 % (37.0-47.0); HEMOGLOBIN 10.8 g/dl (12.0-16.0); IMMATURE GRANULOCYTE % (AUTO) 0.2 % (0.0-5.0); LYMPHOCYTES # (AUTO) 3.8 K/uL (0.60-3.4); LYMPHOCYTES % (AUTO) 43.2 (10.0-50.0); MEAN CORPUSCULAR HEMOGLOBIN 29.8 pg (27.0-31.0); MEAN CORPUSCULAR HGB CONC 32.3 (31.8-35.4); MONOCYTES # (AUTO) 0.7 K/uL (0.4-2.0); MONOCYTES % (AUTO) 8.3 (0-10); NEUTROPHILS # (AUTO) 4.1 K/ul (2.0-6.9); NEUTROPHILS % (AUTO) 46.9 % (42.2-75.2); PLATELET COUNT 257 10^3/uL (140-440); RDW COEFFICIENT OF VARIATION 12.3 % (11.6-14.8); RED BLOOD COUNT 3.63 10^6/ul (4.20-5.40); WHITE BLOOD COUNT 8.71 K/ul (4.6-10.2)
[2021-07-27 05:20] LABS: BLOOD UREA NITROGEN 25.6 mg/dL (7-17); CALCIUM 8.29 mg/dL (8.4-10.2); CARBON DIOXIDE 28.6 mmol/L (22-30.0); CHLORIDE 104.2 mmol/L (98-107); CREATININE 1.32 mg/dL (0.60-1.30); GLUCOSE 87.4 mg/dL (74-106); POTASSIUM 3.63 mmol/L (3.5-5.1); SODIUM 137.8 mmol/L (134.5-145)
[2021-07-27] MEDS: SYNTHROID PO SCH ×2 (08:28)
[2021-07-27] MEDS: MULTIVITAMIN TABLET PO SCH (08:29)
[2021-07-27] MEDS ORDERED: SYNTHROID PO SCH (09:00)
[2021-07-27] MEDS ORDERED: MULTIVITAMIN PO SCH (09:00)
[2021-07-27] MEDS: LOVENOX SUBCUT SCH (09:15)
[2021-07-27] MEDS ORDERED: TYLENOL PO ONE (09:25)
--- NOTE | 2021-07-27 10:49 | RS.SLPCNOT ---
Speech Case Note Date of Note: 07/27/21 Title: Speech consult Note: The RATE MARKER discussed potential consult with RN. She agreed for RATE MARKER to screen pt at this time. RATE MARKER entered room and asked questions regarding home environment, safety, independence level, and swallowing difficulty. The patient denied swallowing difficulty. RATE MARKER observed her take small sips of thin liquids without overt s/s of aspiration. Small bites of cracker was also being consumed and pt demonstrated functional mastication process. Cognitive function presented intact with informal questions regarding safety awareness. The patient's primary concern with return to home environment is her fall risks. The patient asked about potential 'fall alert button." She is curious about Medicare coverage and is considering getting a fall button for her safety in the home. At this time, RATE MARKER did not observe any deficits to require further evaluation/assessment. Thank you for this consult.
[2021-07-27] MEDS: PRILOSEC PO SCH (15:21)
[2021-07-27] MEDS: WELLBUTRIN XL PO SCH (15:21)
[2021-07-27] MEDS: SINGULAIR PO SCH (20:46)
[2021-07-28] MEDS: SODIUM CHLORIDE 1,000 ML IV SCH (02:28)
[2021-07-28 05:35] LABS: BASOPHILS % (AUTO) 0.5 % (0.0-3.0); EOSINOPHILS # (AUTO) 0.1 K/ul (0.0-0.7); EOSINOPHILS % (AUTO) 1.6 % (0.0-7.0); HEMATOCRIT 31.2 % (37.0-47.0); HEMOGLOBIN 10.2 g/dl (12.0-16.0); IMMATURE GRANULOCYTE % (AUTO) 0.1 % (0.0-5.0); LYMPHOCYTES # (AUTO) 3.3 K/uL (0.60-3.4); LYMPHOCYTES % (AUTO) 43.8 (10.0-50.0); MEAN CORPUSCULAR HEMOGLOBIN 29.7 pg (27.0-31.0); MEAN CORPUSCULAR HGB CONC 32.7 (31.8-35.4); MONOCYTES # (AUTO) 0.6 K/uL (0.4-2.0); MONOCYTES % (AUTO) 7.7 (0-10); NEUTROPHILS # (AUTO) 3.5 K/ul (2.0-6.9); NEUTROPHILS % (AUTO) 46.3 % (42.2-75.2); PLATELET COUNT 232 10^3/uL (140-440); RDW COEFFICIENT OF VARIATION 12.1 % (11.6-14.8); RED BLOOD COUNT 3.43 10^6/ul (4.20-5.40); WHITE BLOOD COUNT 7.51 K/ul (4.6-10.2)
[2021-07-28 06:02] LABS: BLOOD UREA NITROGEN 14.2 mg/dL (7-17); CALCIUM 8.09 mg/dL (8.4-10.2); CARBON DIOXIDE 25.8 mmol/L (22-30.0); CREATININE 0.93 mg/dL (0.60-1.30); GLUCOSE 111.8 mg/dL (74-106); POTASSIUM 3.42 mmol/L (3.5-5.1); SODIUM 137.2 mmol/L (134.5-145)
[2021-07-28] MEDS: SYNTHROID PO SCH ×2 (06:07)
[2021-07-28] MEDS: PRILOSEC PO SCH ×2 (06:07→16:50)
[2021-07-28] MEDS: WELLBUTRIN XL PO SCH (08:46)
[2021-07-28] MEDS: PROCARDIA XL PO SCH (08:46)
[2021-07-28] MEDS: MULTIVITAMIN TABLET PO SCH (08:46)
[2021-07-28] MEDS: LOVENOX SUBCUT SCH (08:47)
[2021-07-28] MEDS ORDERED: ZOFRAN ODT PO PRN (09:00)
[2021-07-28] MEDS ORDERED: ZOFRAN ODT PO ONE (09:01)
[2021-07-28] MEDS ORDERED: VENOFER 500 MG in SODIUM CHLORIDE 250 ML IV ONE (16:12)
[2021-07-28] MEDS ORDERED: DULCOLAX RC ONE (16:20)
[2021-07-28] MEDS ORDERED: DULCOLAX PO ONE (16:20)
[2021-07-28] MEDS: SINGULAIR PO SCH (20:16)
[2021-07-28] MEDS: ZOFRAN ODT PO PRN (21:33)
[2021-07-28] MEDS: TYLENOL PO PRN (21:47)
[2021-07-29] MEDS: TYLENOL PO PRN (02:01)
[2021-07-29] MEDS: ZOFRAN ODT PO PRN ×2 (03:39→18:41)
[2021-07-29 05:46] LABS: BASOPHILS % (AUTO) 0.4 % (0.0-3.0); EOSINOPHILS # (AUTO) 0.1 K/ul (0.0-0.7); EOSINOPHILS % (AUTO) 1.2 % (0.0-7.0); HEMATOCRIT 33.1 % (37.0-47.0); HEMOGLOBIN 11.1 g/dl (12.0-16.0); IMMATURE GRANULOCYTE % (AUTO) 0.2 % (0.0-5.0); LYMPHOCYTES # (AUTO) 2.2 K/uL (0.60-3.4); LYMPHOCYTES % (AUTO) 24.6 (10.0-50.0); MEAN CORPUSCULAR HEMOGLOBIN 30.1 pg (27.0-31.0); MEAN CORPUSCULAR HGB CONC 33.5 (31.8-35.4); MEAN CORPUSCULAR VOLUME 89.7 fl (81.0-99.0); MONOCYTES # (AUTO) 0.7 K/uL (0.4-2.0); MONOCYTES % (AUTO) 8.1 (0-10); NEUTROPHILS # (AUTO) 5.8 K/ul (2.0-6.9); NEUTROPHILS % (AUTO) 65.5 % (42.2-75.2); PLATELET COUNT 270 10^3/uL (140-440); RDW COEFFICIENT OF VARIATION 12.1 % (11.6-14.8); RED BLOOD COUNT 3.69 10^6/ul (4.20-5.40); WHITE BLOOD COUNT 8.93 K/ul (4.6-10.2)
[2021-07-29] MEDS: SYNTHROID PO SCH ×2 (05:46)
[2021-07-29] MEDS: PRILOSEC PO SCH ×2 (05:46→17:32)
[2021-07-29 05:58] LABS: BLOOD UREA NITROGEN 9.1 mg/dL (7-17); CALCIUM 9.05 mg/dL (8.4-10.2); CARBON DIOXIDE 28.6 mmol/L (22-30.0); CREATININE 0.88 mg/dL (0.60-1.30); GLUCOSE 111.3 mg/dL (74-106); POTASSIUM 3.57 mmol/L (3.5-5.1); SODIUM 139.2 mmol/L (134.5-145)
[2021-07-29] MEDS ORDERED: PEPCID IVP ONE (07:14)
[2021-07-29] MEDS ORDERED: PHENERGAN 25 MG/ML VIAL 12.5 MG in SODIUM CHLORIDE 50 ML IV PRN (07:14)
[2021-07-29] MEDS ORDERED: NORCO 10-325 PO PRN (07:24)
[2021-07-29 07:40] LABS: CREATINE KINASE 313.3 U/L (30-135)
[2021-07-29 07:59] LABS: TROPONIN I < 0.012 ng/ml (0.0000-0.120)
[2021-07-29] MEDS: PROCARDIA XL PO SCH (08:48)
[2021-07-29] MEDS: ZESTRIL PO SCH (08:48)
[2021-07-29] MEDS: MULTIVITAMIN TABLET PO SCH (08:50)
[2021-07-29] MEDS: LOVENOX SUBCUT SCH (08:51)
--- NOTE | 2021-07-29 10:22 | DI ---
EXAM: Frontal view of the abdomen. HISTORY: Nausea, abdominal pain, vomiting. COMPARISON: CT abdomen pelvis 08/20/2020. FINDINGS: Cholecystectomy clips in the right upper quadrant. No evidence of large volume free air. Bowel does not appear obstructed. Bones are diffusely demineralized. Lumbar fusion screws and right hip arthroplasty hardware are note d. Intrathecal medication pump noted at the right abdominal wall. Degenerative changes of the sacroi liac joints, left hip joint, and pubic symphysis.. IMPRESSION: No acute abnormality.
[2021-07-29] MEDS: WELLBUTRIN XL PO SCH (11:40)
[2021-07-29] MEDS ORDERED: VENOFER 300 MG in SODIUM CHLORIDE 250 ML IV ONE (17:53)
[2021-07-29] MEDS: SINGULAIR PO SCH (20:21)
[2021-07-30 05:25] VITALS: BP 128/67; TEMP 98.1
[2021-07-30] MEDS: PRILOSEC PO SCH (05:41)
[2021-07-30] MEDS: SYNTHROID PO SCH ×2 (05:41)
[2021-07-30 05:46] LABS: BASOPHILS # (AUTO) 0.1 K/uL (0-0.2); BASOPHILS % (AUTO) 0.6 % (0.0-3.0); EOSINOPHILS # (AUTO) 0.2 K/ul (0.0-0.7); EOSINOPHILS % (AUTO) 2.1 % (0.0-7.0); HEMATOCRIT 32.7 % (37.0-47.0); HEMOGLOBIN 10.7 g/dl (12.0-16.0); IMMATURE GRANULOCYTE % (AUTO) 0.2 % (0.0-5.0); LYMPHOCYTES # (AUTO) 2.9 K/uL (0.60-3.4); LYMPHOCYTES % (AUTO) 35.6 (10.0-50.0); MEAN CORPUSCULAR HGB CONC 32.7 (31.8-35.4); MEAN CORPUSCULAR VOLUME 91.6 fl (81.0-99.0); MONOCYTES # (AUTO) 0.7 K/uL (0.4-2.0); MONOCYTES % (AUTO) 9.2 (0-10); NEUTROPHILS # (AUTO) 4.2 K/ul (2.0-6.9); NEUTROPHILS % (AUTO) 52.3 % (42.2-75.2); PLATELET COUNT 261 10^3/uL (140-440); RDW COEFFICIENT OF VARIATION 12.4 % (11.6-14.8); RED BLOOD COUNT 3.57 10^6/ul (4.20-5.40); WHITE BLOOD COUNT 8.04 K/ul (4.6-10.2)
[2021-07-30 06:04] LABS: ALANINE AMINOTRANSFERASE 15.4 U/L (0-35); ALBUMIN 3.86 g/dL (3.5-5.0); ALKALINE PHOSPHATASE 71.5 U/L (53-141); ASPARTATE AMINO TRANSFERASE 29.8 U/L (14-36); BILIRUBIN,TOTAL 0.39 mg/dL (0.2-1.3); BLOOD UREA NITROGEN 11.3 mg/dL (7-17); CALCIUM 8.78 mg/dL (8.4-10.2); CARBON DIOXIDE 29.9 mmol/L (22-30.0); CHLORIDE 105.7 mmol/L (98-107); CREATININE 0.99 mg/dL (0.60-1.30); GLUCOSE 89.4 mg/dL (74-106); POTASSIUM 3.44 mmol/L (3.5-5.1); SODIUM 139.4 mmol/L (134.5-145); TOTAL PROTEIN 6.72 g/dL (6.3-8.2)
[2021-07-30] MEDS: PROCARDIA XL PO SCH (08:46)
[2021-07-30] MEDS: ZESTRIL PO SCH (08:46)
[2021-07-30] MEDS: LOVENOX SUBCUT SCH (08:47)
[2021-07-30] MEDS: WELLBUTRIN XL PO SCH (08:47)
[2021-07-30] MEDS: MULTIVITAMIN TABLET PO SCH (08:47)
[2021-07-30] MEDS: ZOFRAN ODT PO PRN (09:23)
--- NOTE | 2021-08-29 09:56 | HP ---
DISCUSSION: 81 year old lady with a history of hypertension, chronic low back pain, presented to my office with weakness for several days. She has had increasing weakness, shortness of breath with any exertion. She denies any chest pain. However she felt that she could not even walk without feeling very shaky. She required assistance in the office and for this she requires admission for further evaluation and treatment. PAST MEDICAL HISTORY: MEDICATIONS: Wellbutrin 300mg a day Hydrocodone Levothyroxine 25mg Lisinopril 25mg daily Singulair 10mg Nifedipine 30mg daily Prilosec 20mg Q daily Lasix 40mg Q daily ALLERGIES: No known allergies. PAST MEDICAL HISTORY: Anxiety Depression Hypertension Intrathecal infusion PAST SURGICAL HISTORY: Hysterectomy SOCIAL HISTORY: Nonsmoker, no alcohol or illicit drug use. FAMILY HISTORY: Colon cancer in mother REVIEW OF SYSTEMS: No headaches, visual changes, tinnitus, chest pain, shortness of breath, hemoptysis, abdominal pain, blood in the stool, urinary symptoms or seizures. She has had generalized global weakness. PHYSICAL EXAMINATION: V/S: Temperature 96, pulse 70, respiratory rate 18, blood pressure 90/60 HEENT: Pupils are round. NECK: Supple. CHEST: Clear. CARDIOVASCULAR: Regular rate and rhythm. ABDOMEN: Soft, nontender. EXTREMITIES: Distal extremities without cyanosis or edema. LABS: Reviewed noting evidence of elevated BUN and creatinine consistent with EDSON. Also evidence of iron deficiency anemia ASSESSMENT: 1. EDSON 2. Weakness 3. Anemia PLAN: 1. Admission 2. Vigorous IV fluids support to hopefully improve the EDSON 3. Hold the Lasix 4. Check stools 5. Chest iron studies. Please see orders. MTDD
--- NOTE | 2021-08-29 10:50 | DS ---
PRINCIPAL DIAGNOSIS: 1. EDSON 2. Iron deficiency anemia DISCUSSION: 81 year old lady who presented to my office with global weakness. She was unable ambulatory except for the assistance of her daughter. She presented with evidence of slight hypotension. She was admitted and shortly after admission labs indicated evidence of EDSON and anemia. CLINICAL COURSE: She was admitted with IV fluids. IV hydration her renal function improved. She felt better. Iron deficiency anemia with treated with IV iron. Stool studies were ordered which were negative for blood and at time of discharge she did have a vomiting and diarrhea 24 hours prior to discharge which I thought was probably secondary to enteritis but it resolved and at this point the patient was discharged. She will hold the Lasix and will followup with me in the office next week. JESS
--- NOTE | 2021-08-29 10:54 | PN ---
DATE OF VISIT: 07/27/21 SUBJECTIVE: There is no nursing staff concerns. She is beginning better after IV fluids. She denies any nausea or abdominal pain. We are going to go ahead and continue IV fluids support. OBJECTIVE: Temperature 96, pulse 70, respiratory rate 18, blood pressure 120/80. REVIEW OF SYSTEMS: Denies headaches, visual changes, tinnitus or chest pain. Positive for shortness of breath with exertion. No hemoptysis, abdominal pain, blood in the stool, urinary symptoms or seizures. PHYSICAL EXAMINATION: HEENT: Pupils are round. NECK: Supple. CHEST: Clear. CARDIOVASCULAR: Regular rate and rhythm. ABDOMEN: Soft, nontender. EXTREMITIES: Distal extremities without cyanosis or edema. IMPRESSION: 1. EDSON 2. Anemia PLAN: 1. Check stools 2. Check iron studies 3. We will continue IV fluids support. MTDD
--- NOTE | 2021-08-29 10:56 | PN ---
DATE OF VISIT: 07/28/21 SUBJECTIVE: Temitope is feeling much better after IV fluids. Weakness has improved. Iron studies were suggestive of iron deficiency, waiting for stool studies. OBJECTIVE: Temperature 98.6, pulse 80, respiratory 18, blood pressure 120/80. REVIEW OF SYSTEMS: Denies headaches, visual changes, tinnitus or chest pain. Positive for shortness of breath with exertion. No hemoptysis, abdominal pain, blood in the stool, urinary symptoms or seizures. PHYSICAL EXAMINATION: HEENT: Pupils are round. NECK: Supple. CHEST: Clear. CARDIOVASCULAR: Regular rate and rhythm. ABDOMEN: Soft, nontender. EXTREMITIES: Distal extremities without cyanosis or edema. IMPRESSION: 1. EDSON, improved with IV fluids 2. Anemia PLAN: 1. Start IV infusion of iron 2. Await stool studies 3. Please see orders. MTDD
--- NOTE | 2021-08-29 11:01 | PN ---
DATE OF VISIT: 07/29/21 SUBJECTIVE: Temitope awoke with nausea and vomiting as well as nonbloody diarrhea and abdominal cramping. She is very disturbed over this. OBJECTIVE: Temperature 96, pulse 80, respiratory rate 18 REVIEW OF SYSTEMS: Denies headaches, visual changes, tinnitus or chest pain. Positive for shortness of breath with exertion. No hemoptysis, abdominal pain, blood in the stool, urinary symptoms or seizures. PHYSICAL EXAMINATION: HEENT: Pupils are round. NECK: Supple. CHEST: Clear. CARDIOVASCULAR: Regular rate and rhythm. ABDOMEN: Soft, nontender. Bowel sounds present. EXTREMITIES: Distal extremities without cyanosis or edema. LABS: X-ray of the abdomen doesn't reveal any obstruction. IMPRESSION: 1. Probably gastroenteritis 2. EDSON 3. Iron deficiency anemia PLAN: 1. Give her antiemetics 2. Observe her symptoms over the next 24 hours 3. Please see orders. MTDD
== END 2021-07-30 11:19 | disposition home or self-care (01) | DRG 556 ==
LOC: LAB 13:49 → MEDSURG A 15:27
PROVIDERS: ADMIT Family Medicine; ATTEND Family Medicine
DX: D50.9 Iron deficiency anemia, unspecified; R06.02 Shortness of breath; F32.A Depression, unspecified; I10 Essential (primary) hypertension; Z80.0 Family history of malignant neoplasm of digestive organs; M62.81 Muscle weakness (generalized); Z51.81 Encounter for therapeutic drug level monitoring; Z79.899 Other long term (current) drug therapy; F41.9 Anxiety disorder, unspecified; M54.9 Dorsalgia, unspecified; N17.9 Acute kidney failure, unspecified; Z20.822 Contact with and (suspected) exposure to COVID-19; I95.9 Hypotension, unspecified

== ENCOUNTER 2024-02-19 12:18 | Inpatient (IN) ==
--- NOTE | 2024-02-19 12:56 | ED.PDOC ---
General ED Provider: Dr. REGAN PIERCE MD Chief Complaint: Hypertension Stated Complaint: Patient history of hypertension and chronic low back pain complains of onset of dyspnea on exertion today patient recently had her lisinopril 20 mg increased to twice daily due to uncontrolled hypertension. Patient denies chest pain, diaphoresis, palpitations, headache. Patient has a implantable intrathecal infusion pump with Dilaudid. Time Seen by Provider: 02/19/24 12:50 Mode of Arrival: Ambulance Information Source: Patient Exam Limitations: Clinical condition Primary Care Provider: TYREE KELLY Nursing and Triage Documentation Reviewed and Agree: Yes What is Opioid Naive?: *Opioid Naive implies the patient is not already taking opioids or not chronically receiving opioids on a daily basis. *PRN dosing is not "usually" associated with tolerance. *Patients are at higher risk of over-sedation and aspiration. What is Opioid Tolerant?: *Opioid Tolerance implies less than the expected response to an opioid. *Acquired tolerance is defined by the patient taking 60mg of oral morphine daily (or equianalgesic dose of another opioid) for 1 week or more. *Often associated with chronic pain. *May take more than usual dose to achieve desired pain control. Review of Systems Review Of Systems Constitutional: Reports No symptoms Eyes: Reports No symptoms Ears, Nose, Mouth, Throat: Reports No symptoms Respiratory: Reports Other (Exertional dyspnea) Cardiac: Reports No symptoms GI: Reports No symptoms : Reports No symptoms Musculoskeletal: Reports No symptoms Skin: Reports No symptoms Neurological: Reports No symptoms Endocrine: Reports No symptoms Hematologic/Lymphatic: Reports No symptoms All Other Systems: Reviewed and Negative [facility] Medical History Anxiety F41.9 - Anxiety disorder, unspecified (ICD-10) Depression F32.A - Depression, unspecified (ICD-10) Implantable intrathecal infusion pump present Z96.89 - Presence of other specified functional implants (ICD-10) Hypertension for 10 years I10 - Essential (primary) hypertension (ICD-10) Family History Mother Colon cancer FATHER Old age Social History Smoking and tobacco status: Never smoker Surgical History History of musculoskeletal system surgery back surg. 2000 x 3 Z98.890 - Other specified postprocedural states (ICD-10) History of gastrointestinal surgery gall bladder removed doesnt know when Z98.890 - Other specified postprocedural states (ICD-10) Status post hysterectomy 20 years ago Z90.710 - Acquired absence of both cervix and uterus (ICD-10) Female Reproductive History Menstrual Hx Hysterectomy: Yes Hx Tubal Ligation: No Physical Exam Physical Exam Appearance: Reports Well-appearing Ill-appearing: None Pain Distress: None Eyes: Reports NALINI, EOMI and Conjunctiva clear ENT: Reports Ears normal, Nose normal, Oropharynx normal and Dry mucosa Neck: Supple Respiratory: Reports Airway patent, Breath sounds clear and Breath sounds equal Cardiovascular: Reports RRR, Pulses normal, No rub and No murmur GI/: Reports Soft, Nontender, No masses, Bowel sounds normal and No Organomegaly Musculoskeletal: Reports Normal strength, ROM intact and Edema (There is trace to +1 pretibial edema bilaterally) Skin: Reports Warm Neurological: Reports Sensation intact, Motor intact, Reflexes intact, Cranial nerves intact, Alert and Oriented Psychiatric: Reports Affect appropriate Critical Care Note Critical Care Note Total Critical Care Time (mins): 30 Course Course 02/19/24 13:05 02/19/24 13:05 Orders, Labs, Meds: Lab Review 02/19/24 02/19/24 02/19/24 12:44 13:05 14:10 WBC 8.10 RBC 4.46 Hgb 13.0 Hct 40.3 MCV 90.4 MCH 29.1 MCHC 32.3 RDW Coeff of [place]win 12.5 Plt Count 284 Immature Gran % (Auto) 0.2 Neut % (Auto) 67.7 Lymph % (Auto) 23.5 [place] % (Auto) 6.9 Eos % (Auto) 1.2 Baso % (Auto) 0.5 Neut # (Auto) 5.5 Lymph # (Auto) 1.9 [place] # (Auto) 0.6 Eos # (Auto) 0.1 Baso # (Auto) 0.0 Immature Gran # (Auto) 0.0 Sodium 140.3 Potassium 3.32 L Chloride 100.9 Carbon Dioxide 29.4 Anion Gap 13.32 BUN 10.4 Creatinine 0.76 Estimated GFR (MDRD) 73.00 BUN/Creatinine Ratio 13.68 Glucose 151.3 H Calcium 8.89 Magnesium Total Bilirubin 0.72 AST 32.1 ALT 18.3 Alkaline Phosphatase 81.4 Troponin I 0.019 NT-Pro-B Natriuret Pep 1100 H Total Protein 7.79 Albumin 4.37 Globulin 3.42 Albumin/Globulin Ratio 1.27 TSH D-Dimer 1577.46 H Urine Color Yellow Urine Clarity Clear Urine pH 7.0 Ur Specific [place] 1.025 Urine Protein 3+ H Urine Glucose (UA) Negative Urine Ketones Negative Urine Blood 2+ H Urine Nitrite Negative Urine Bilirubin Negative Urine Urobilinogen 0.2 Ur Leukocyte Esterase Negative Urine Microscopic RBC 20-30 Ur Squamous Epith Cells 0-2 SARS CoV-2 RNA Rapid JAYA Negative 02/19/24 02/19/24 15:34 15:44 WBC RBC Hgb Hct MCV MCH MCHC RDW Coeff of [place] Plt Count Immature Gran % (Auto) Neut % (Auto) Lymph % (Auto) [place] % (Auto) Eos % (Auto) Baso % (Auto) Neut # (Auto) Lymph # (Auto) [place] # (Auto) Eos # (Auto) Baso # (Auto) Immature Gran # (Auto) Sodium Potassium Chloride Carbon Dioxide Anion Gap BUN Creatinine Estimated GFR (MDRD) BUN/Creatinine Ratio Glucose Calcium Magnesium 1.35 L Total Bilirubin AST ALT Alkaline Phosphatase Troponin I 0.033 NT-Pro-B Natriuret Pep Total Protein Albumin Globulin Albumin/Globulin Ratio TSH 2.990 D-Dimer Urine Color Urine Clarity Urine pH Ur Specific [place] Urine Protein Urine Glucose (UA) Urine Ketones Urine Blood Urine Nitrite Urine Bilirubin Urine Urobilinogen Ur Leukocyte Esterase Urine Microscopic RBC Ur Squamous Epith Cells SARS CoV-2 RNA Rapid JAYA Orders Category Date Time Status EKG-(ED ONLY) Stat CARDIO 02/19/24 12:56 Completed EKG-(ED ONLY) Stat CARDIO 02/19/24 14:04 Completed EKG-(ED ONLY) Stat CARDIO 02/19/24 14:23 Completed NPO REMINDER: IMAGING ONCE CARE 02/19/24 14:30 Completed 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 APPLIED] .ONCE EMERGENCY 02/19/24 12:56 Active Saline Lock [ED IV/MEDIPORT/POWERPORT] .ONCE EMERGENCY 02/19/24 12:56 Active CBC W/ AUTO DIFF Stat LAB 02/19/24 13:05 Completed CMP [COMPREHENSIVE METABOLIC PANEL] Stat LAB 02/19/24 13:05 Completed COVID [SARS COV-2 RNA RAPID JAYA] Stat LAB 02/19/24 14:10 Completed D-DIMER Stat LAB 02/19/24 13:05 Completed MAGNESIUM Stat LAB 02/19/24 15:44 Completed PROBNP ED [NT-PROBNP(ED)] Stat LAB 02/19/24 13:05 Completed TROPONIN I Stat LAB 02/19/24 13:05 Completed TROPONIN I Stat LAB 02/19/24 15:44 Completed TSH [THYROID STIMULATING HORMONE] Stat LAB 02/19/24 15:34 Completed URINALYSIS C & S IF INDICATED Stat LAB 02/19/24 12:44 Completed 0.9 % Sodium Chloride [Saline Flush] Meds 02/19/24 12:56 Active 1 syr IVF PRN PRN Hydralazine HCl Meds 02/19/24 12:56 Discontinued 20 mg IVP ONCE STA Labetalol HCl [Trandate] Meds 02/19/24 14:06 Discontinued 20 mg IVP ONCE ONE Magnesium Sulfate Bag [Magnesium Sulfate 1 gm/100 ml Meds 02/19/24 16:46 Active D5w] 1 gm in 100 ml IV ONCE Ondansetron HCl/Pf [Zofran 4 mg/2 ml] Meds 02/19/24 13:57 Discontinued 4 mg IVP ONCE STA Ondansetron HCl/Pf [Zofran 4 mg/2 ml] Meds 02/19/24 15:04 Discontinued 4 mg IVP ONCE STA Potassium Chloride [K-Dur] Meds 02/19/24 16:02 Discontinued 20 meq PO ONCE STA CHEST, 1V AP ONLY Stat RADS 02/19/24 12:57 Completed CTA CHEST PE PROTOCOL Stat RADS 02/19/24 14:30 Completed Medications Generic Name Dose Route Start Last Admin Trade Name Freq PRN Reason Stop Dose Admin Magnesium Sulfate/Dextrose 1 gm in 100 mls @ 100 mls/hr 02/19/24 16:46 Magnesium Sulfate 1 Gm/100 Ml D5w IV 02/19/24 17:45 ONCE ONE Sodium Chloride 1 syr 02/19/24 12:56 02/19/24 15:08 0.9% Sodium Chloride 10 Ml Disp.Syrin IVF 1 syr PRN PRN Administration To flush IV Discontinued Medications Generic Name Dose Route Start Last Admin Trade Name Freq PRN Reason Stop Dose Admin Hydralazine HCl 20 mg 02/19/24 12:56 02/19/24 13:33 Hydralazine Hcl 20 Mg/Ml Sdv IVP 02/19/24 12:57 20 mg ONCE STA Administration Labetalol HCl 20 mg 02/19/24 14:06 02/19/24 14:11 Labetalol Hcl 20 Mg/4 Ml Disp.Syrin IVP 02/19/24 14:07 20 mg ONCE ONE Administration Ondansetron HCl 4 mg 02/19/24 13:57 02/19/24 14:01 Ondansetron Hcl/Pf 4 Mg/2 Ml Sdv IVP 02/19/24 13:58 4 mg ONCE STA Administration Ondansetron HCl 4 mg 02/19/24 15:04 02/19/24 15:08 Ondansetron Hcl/Pf 4 Mg/2 Ml Sdv IVP 02/19/24 15:05 4 mg ONCE STA Administration Potassium Chloride 20 meq 02/19/24 16:02 02/19/24 16:13 Potassium Chloride 20 Meq Tab PO 02/19/24 16:03 20 meq ONCE STA Administration Vital Signs: Temp Pulse Resp BP Pulse Ox 02/19/24 12:23 98.6 F 96 26 H 193/103 H 95 Discharge Plan Discharge Patient Disposition: PLACED OBSERVATION Discharge Problem: Hypomagnesemia Congestive heart failure Qualifiers: Heart failure type: unspecified Heart failure chronicity: acute Qualified Code(s): I50.9 - Heart failure, unspecified Atrial fibrillation Qualifiers: Atrial fibrillation type: paroxysmal Qualified Code(s): I48.0 - Paroxysmal atrial fibrillation Prescriptions: No Action lisinopril 20 MG tablet 20 mg PO BID levothyroxine 100 MCG tablet 125 mcg PO DAILY montelukast [Singulair] 10 MG tablet 10 mg PO BEDTIME potassium chloride 10 mEq capsule, extended release 10 meq PO DAILY (DME) dilaudid auto-injector 0 .ROUTE .MEDSUPPLY omeprazole [Prilosec] 20 mg Capsule,Delayed Release(Dr/Ec) 20 mg PO DAILY bupropion HCl [Wellbutrin XL] 300 mg Tablet Extended Release 24 Hr 300 mg PO DAILY Linzess 145 mcg capsule 145 mcg PO DAILY celecoxib 200 mg capsule 200 mg PO DAILY furosemide 20 mg tablet 20 mg PO DAILY fluticasone propionate 50 mcg/actuation spray,suspension 1 spray INTRANASAL ONCE duloxetine 60 mg capsule,delayed release(DR/EC) 60 mg PO DAILY Did you review [place] SHIPPING AGENT for ALL controlled substances?: Not Applicable ED Provider: REGAN PIERCE Condition: Stable Physician Progress Note: History obtained from the patient has a history of chronic low back pain, hypertension, patient has an intrathecal infusion pump with Dilaudid for chronic pain. Patient complains of exertional dyspnea today denies chest pain, diaphoresis, palpitations, fever and cough. Vital signs blood pressure 193/103 Saline established and patient administered hydralazine 20 mg IV 1310-EKG interpretation by myself are consistent with normal sinus rhythm rate of 83 left ventral hypertrophy and Calhoun's wave changes inferior laterally. 1408-EKG interpretation by myself consistent with atrial fibrillation ventricular sponsor 94, no significant ST changes. 1400-patient had witnessed episode of rapid atrial fibrillation on the monitor rates 150s. Patient administered labetalol 20 mg IV Portable chest x-ray interpretation per radiologist shows no acute cardiopulmonary process. All laboratory data reviewed for CBC and CMP and are all within normal limit except for a potassium 3.3, troponin 0.019, BNP 1100, the D-dimer of 1577. Magnesium 1.3 1452-EKG interpretation by myself consistent with normal sinus rhythm rate of 72 nonspecific inferior lateral T wave changes noted. There is no ectopy or prolongation of IA QT interval. Patient given magnesium sulfate 1 g IV piggyback over an hour Lasix [address] of the chest shows no evidence of pulmonary embolism there is minor groundglass opacity with septal thickening suspect for edema. Differential diagnosis: 1) early congestive heart failure 2) atrial fibrillation 3) hypomagnesemia Discussed with Dr. Nicolasa Wasserman at 1500 for observation to the hospitalist service Discussed with hospitalist Naif Maya at 1505 for observation
[2024-02-19 13:08] LABS: BASOPHILS % (AUTO) 0.5 % (0.0-3.0); EOSINOPHILS # (AUTO) 0.1 K/ul (0.0-0.7); EOSINOPHILS % (AUTO) 1.2 % (0.0-7.0); HEMATOCRIT 40.3 % (37.0-47.0); IMMATURE GRANULOCYTE % (AUTO) 0.2 % (0.0-5.0); LYMPHOCYTES # (AUTO) 1.9 K/uL (0.60-3.4); LYMPHOCYTES % (AUTO) 23.5 (10.0-50.0); MEAN CORPUSCULAR HEMOGLOBIN 29.1 pg (27.0-31.0); MEAN CORPUSCULAR HGB CONC 32.3 (31.8-35.4); MEAN CORPUSCULAR VOLUME 90.4 fl (81.0-99.0); MONOCYTES # (AUTO) 0.6 K/uL (0.4-2.0); MONOCYTES % (AUTO) 6.9 (0-10); NEUTROPHILS # (AUTO) 5.5 K/ul (2.0-6.9); NEUTROPHILS % (AUTO) 67.7 % (42.2-75.2); PLATELET COUNT 284 10^3/uL (140-440); RDW COEFFICIENT OF VARIATION 12.5 % (11.6-14.8); RED BLOOD COUNT 4.46 10^6/ul (4.20-5.40)
[2024-02-19 13:22] LABS: ALANINE AMINOTRANSFERASE 18.3 U/L (0-35); ALBUMIN 4.37 g/dL (3.5-5.0); ALKALINE PHOSPHATASE 81.4 U/L (53-141); ASPARTATE AMINO TRANSFERASE 32.1 U/L (14-36); BILIRUBIN,TOTAL 0.72 mg/dL (0.2-1.3); BLOOD UREA NITROGEN 10.4 mg/dL (7-17); CALCIUM 8.89 mg/dL (8.4-10.2); CARBON DIOXIDE 29.4 mmol/L (22-30.0); CHLORIDE 100.9 mmol/L (98-107); CREATININE 0.76 mg/dL (0.60-1.30); GLUCOSE 151.3 mg/dL (74-106); POTASSIUM 3.32 mmol/L (3.5-5.1); SODIUM 140.3 mmol/L (134.5-145); TOTAL PROTEIN 7.79 g/dL (6.3-8.2)
[2024-02-19 13:33] LABS: TROPONIN I 0.019 ng/ml (0.0000-0.120)
[2024-02-19] MEDS: HYDRALAZINE HCL IVP STA ×2 (13:33→19:35)
--- NOTE | 2024-02-19 13:34 | DI ---
EXAM: CHEST ONE-VIEW HISTORY: Dyspnea COMPARISON: Chest radiograph series from 04/17/2023 FINDINGS: The heart size is prominent. The pulmonary vasculature is normal. No consolidating infi ltrates are detected. No pneumothoraces or pleural effusions. IMPRESSION: 1. No acute cardiopulmonary disease. .
[2024-02-19 13:40] LABS: BILIRUBIN,URINE Negative (NEGATIVE); CLARITY,URINE Clear (CLEAR); COLOR,URINE Yellow (YELLOW); GLUCOSE, URINE (UA) Negative (NEGATIVE); KETONES,URINE Negative (NEGATIVE); LEUKOCYTE ESTERASE ,URINE Negative (NEGATIVE); NITRITE,URINE Negative (NEGATIVE); PROTEIN,URINE 3+ (NEGATIVE); URINE, BLOOD 2+ (NEGATIVE); UROBILINOGEN,URINE 0.2 (0.2)
[2024-02-19 13:46] LABS: SQUAMOUS EPITHELIAL CELL,UR 0-2 (0-5); URINE RBC, MICROSCOPIC 20-30 (0-2)
[2024-02-19] MEDS: ZOFRAN 4 MG/2 ML IVP STA ×3 (14:01→19:35)
[2024-02-19] MEDS: TRANDATE IVP ONE (14:11)
[2024-02-19 14:29] LABS: SARS COV-2 RNA RAPID NAAT NEGATIVE (NEGATIVE)
[2024-02-19] MEDS ORDERED: ROCEPHIN 1 GM/50 ML D5W 1 GM/50 ML BAG IV ONE (15:35)
[2024-02-19] MEDS ORDERED: CATAPRES PO ONE ×2 (16:02→16:24)
--- NOTE | 2024-02-19 16:05 | CT ---
EXAM: CT ANGIOGRAPHY OF THE CHEST History: Dyspnea, elevated D-dimer Technique: 1.[address] of the chest utilizing CT angiography protocol. Multiplanar and maximum intensity projection reformations were performed. FINDINGS: Technically adequate for evaluation of pulmonary arteries and aorta. There are no pulmona ry artery filling defects. Subtle ground-glass opacity and interlobular septal thickening. No media stinal lymphadenopathy. Atherosclerotic calcification of the aorta and coronary arteries. No acute chest wall abnormality. No acute findings of the upper abdomen. Impression: 1. No evidence of pulmonary artery thrombus 2. Minor ground-glass opacity and septal thickening suspect for edema. No pleural fluid. All CT scans are performed using dose optimization techniques as appropriate to the performed exam an d include at least one of the following: Automated exposure control, adjustment of the mA and/or kV according t o size, and the use of iterative reconstruction technique.
[2024-02-19] MEDS: K-DUR PO STA (16:13)
[2024-02-19 16:26] LABS: MAGNESIUM 1.35 mg/dL (1.6-2.3)
[2024-02-19 16:38] LABS: TROPONIN I 0.033 ng/ml (0.0000-0.120)
[2024-02-19] MEDS: LASIX IVP STA (17:45)
[2024-02-19] MEDS: MAGNESIUM SULFATE 1 GM/100 ML D5W 1 GM/100 ML BAG IV ONE (17:46)
[2024-02-19] MEDS: TYLENOL PO STA (17:54)
[2024-02-19 20:42] VITALS: BMI 29.5
--- NOTE | 2024-02-19 21:33 | PCM ---
Date of Service Date Seen by Provider: 02/19/24 Admit Day/Time Admission Date: 02/19/24 Reason for Admission Chief Complaint: A-FIB, CHF, HYPOMAGNESEMIA Hospital Provider Hospital Provider: BETY TERESA, [facility] [place] Care Physician Primary Care Physician: TYREE KELLY History of Present Illness History of Present Illness: 84 yo female from local assisted living presented to [facility] ER with shortness of breath. States she was walking from the dining room at lunch an d become short of breath. Denies any chest pain, palpitations, or other symptoms. Has chronic edema in which she takes lasix for. Denies any diagnosis of chf. Does have pmh of hypertension. While in ER, patient went into afib rvr. She was given labetalol to treat hypertension initially which then caused patient to return to sinus rhythm. No previous history of afib that she knows of. BNP was found to be elevated. Potassium and magnesium mildly low. Admitted to med/surg observation. Case Discussed With Case Discussed With: Patient's case was discussed with the ER Physicians, Dr. Cao. [facility] Medical History Anxiety F41.9 - Anxiety disorder, unspecified (ICD-10) Depression F32.A - Depression, unspecified (ICD-10) Implantable intrathecal infusion pump present Z96.89 - Presence of other specified functional implants (ICD-10) Hypertension for 10 years I10 - Essential (primary) hypertension (ICD-10) Surgical History History of musculoskeletal system surgery back surg. 2000 x 3 Z98.890 - Other specified postprocedural states (ICD-10) History of gastrointestinal surgery gall bladder removed doesnt know when Z98.890 - Other specified postprocedural states (ICD-10) Status post hysterectomy 20 years ago Z90.710 - Acquired absence of both cervix and uterus (ICD-10) Family History Mother Colon cancer FATHER Old age Social History Smoking and tobacco status: Never smoker Allergies Allergies Allergy/AdvReac Type Severity Reaction Status Date / Time No Known Allergies Allergy Verified 02/19/24 12:20 Current Medications Home Medications levothyroxine 100 mcg tablet 125 mcg PO DAILY 03/02/16 [History Confirmed 02/19/24 Last Taken 07/26/21 08:00] lisinopril 20 mg tablet 20 mg PO BID 03/02/16 [History Confirmed 02/19/24 Last Taken 07/26/21 08:00] montelukast 10 mg tablet (Singulair) 10 mg PO BEDTIME 09/30/18 [History Confirmed 02/19/24 Last Taken 07/25/21 21:00] bupropion HCl 300 mg 24 hr tablet, extended release (Wellbutrin XL) 300 mg PO DAILY 07/27/21 [History Confirmed 02/19/24 Last Taken Unknown] omeprazole 20 mg capsule,delayed release 20 mg PO DAILY 07/27/21 [History Confirmed 02/19/24 Last Taken Unknown] linaclotide 145 mcg capsule (Linzess) 145 mcg PO DAILY 09/29/23 [History Confirmed 02/19/24 Last Taken Unknown] dilaudid 11/01/23 [History Confirmed 02/19/24 Last Taken Unknown] potassium chloride 10 mEq capsule,extended release 10 meq PO DAILY 11/01/23 [History Confirmed 02/19/24 Last Taken Unknown] celecoxib 200 mg capsule 200 mg PO DAILY 02/19/24 [History Confirmed 02/19/24 Last Taken Unknown] duloxetine 60 mg capsule,delayed release 60 mg PO DAILY 02/19/24 [History Confirmed 02/19/24 Last Taken Unknown] fluticasone propionate 50 mcg/actuation nasal spray,suspension 1 spray intranasal ONCE 02/19/24 [History Confirmed 02/19/24 Last Taken Unknown] furosemide 20 mg tablet 20 mg PO DAILY 02/19/24 [History Confirmed 02/19/24 Last Taken Unknown] Home Acetaminophen (Acetaminophen 325 Mg Tablet) 650 mg PO Q4H PRN PRN Reason: Mild Pain Bupropion HCl (Bupropion Hcl 150 Mg Tab.Er.24h) 300 mg PO DAILY [facility] Celecoxib (Celecoxib 100 Mg Capsule) 200 mg PO DAILY [facility] Duloxetine HCl (Duloxetine Hcl 30 Mg Capsule.Dr) 60 mg PO DAILY [facility] Enoxaparin Sodium (Enoxaparin Sodium 40 Mg/0.4 Ml Syr) 40 mg SUBCUT DAILY [facility] Furosemide (Furosemide Inj 20 Mg/2 Ml Vial) 20 mg IVP Q8H [facility] Hydralazine HCl (Hydralazine Hcl 20 Mg/Ml Sdv) 10 mg IVP Q6H PRN PRN Reason: Hypertension Levothyroxine Sodium (Levothyroxine Sodium 100 Mcg Tablet) 100 mcg PO QDAC2 [facility] Levothyroxine Sodium (Levothyroxine Sodium 25 Mcg Tablet) 25 mcg PO QDAC2 [facility] Lisinopril (Lisinopril 10 Mg Tablet) 20 mg PO BID [facility] Last Admin: 02/19/24 21:57 Dose: 20 mg Metoclopramide HCl (Metoclopramide Hcl 10 Mg/2 Ml) 5 mg IVP Q6H PRN PRN Reason: Nausea / Vomiting Metoprolol Tartrate (Metoprolol Tartrate 25 Mg Tablet) 12.5 mg PO BID [facility] Last Admin: 02/19/24 21:56 Dose: 12.5 mg Montelukast Sodium (Montelukast Sodium 10 Mg Tablet) 10 mg PO BEDTIME [facility] Last Admin: 02/19/24 21:58 Dose: 10 mg Non-Formulary Medication (Linaclotide [Linzess]) 145 mcg PO DAILY [facility] Omeprazole (Omeprazole 20 Mg Capsule.Dr) 20 mg PO DAILY [facility] Ondansetron HCl (Ondansetron Hcl/Pf 4 Mg/2 Ml Sdv) 4 mg IVP Q6H PRN PRN Reason: Nausea / Vomiting Sodium Chloride (0.9% Sodium Chloride 10 Ml Disp.Syrin) 1 syr IVF PRN PRN PRN Reason: To flush IV Last Admin: 02/19/24 15:08 Dose: 1 syr Discontinued Medications Acetaminophen (Acetaminophen 325 Mg Tablet) 650 mg PO ONCE STA Stop: 02/19/24 17:50 Last Admin: 02/19/24 17:54 Dose: 650 mg Furosemide (Furosemide Inj 20 Mg/2 Ml Vial) 20 mg IVP ONCE STA Stop: 02/19/24 17:00 Last Admin: 02/19/24 17:45 Dose: 20 mg Hydralazine HCl (Hydralazine Hcl 20 Mg/Ml Sdv) 20 mg IVP ONCE STA Stop: 02/19/24 12:57 Last Admin: 02/19/24 13:33 Dose: 20 mg Hydralazine HCl (Hydralazine Hcl 20 Mg/Ml Sdv) 10 mg IVP ONCE STA Stop: 02/19/24 19:27 Last Admin: 02/19/24 19:35 Dose: 10 mg Magnesium Sulfate/Dextrose (Magnesium Sulfate 1 Gm/100 Ml D5w) 1 gm in 100 mls @ 100 mls/hr IV ONCE ONE Stop: 02/19/24 17:45 Last Admin: 02/19/24 17:46 Dose: 100 mls/hr Labetalol HCl (Labetalol Hcl 20 Mg/4 Ml Disp.Syrin) 20 mg IVP ONCE ONE Stop: 02/19/24 14:07 Last Admin: 02/19/24 14:11 Dose: 20 mg Ondansetron HCl (Ondansetron Hcl/Pf 4 Mg/2 Ml Sdv) 4 mg IVP ONCE STA Stop: 02/19/24 13:58 Last Admin: 02/19/24 14:01 Dose: 4 mg Ondansetron HCl (Ondansetron Hcl/Pf 4 Mg/2 Ml Sdv) 4 mg IVP ONCE STA Stop: 02/19/24 15:05 Last Admin: 02/19/24 15:08 Dose: 4 mg Ondansetron HCl (Ondansetron Hcl/Pf 4 Mg/2 Ml Sdv) 4 mg IVP ONCE STA Stop: 02/19/24 19:27 Last Admin: 02/19/24 19:35 Dose: 4 mg Potassium Chloride (Potassium Chloride 20 Meq Tab) 20 meq PO ONCE STA Stop: 02/19/24 16:03 Last Admin: 02/19/24 16:13 Dose: 20 meq Opioid Naive vs. Tolerant Does Patient Take Opioids?: No What is Opioid Naive?: *Opioid Naive implies the patient is not already taking opioids or not chronically receiving opioids on a daily basis. *PRN dosing is not "usually" associated with tolerance. *Patients are at higher risk of over-sedation and aspiration. Is Patient Opioid Tolerant?: No What is Opioid Tolerant?: *Opioid Tolerance implies less than the expected response to an opioid. *Acquired tolerance is defined by the patient taking 60mg of oral morphine daily (or equianalgesic dose of another opioid) for 1 week or more. *Often associated with chronic pain. *May take more than usual dose to achieve desired pain control. Review of Systems Constitutional: Reports No symptoms Head: Reports Normocephalic Eyes: Reports No symptoms Ears: Reports No symptoms Nose: Reports No symptoms Mouth: Reports No symptoms Throat: Reports No symptoms Cardiovascular: Reports No symptoms Respiratory: Reports Shortness of air Gastrointestinal: Reports No symptoms Genitourinary: Reports No Symptoms Musculoskeletal: Reports No symptoms Endocrine: Reports No symptoms Hematology: Reports No symptoms Immunology: Reports No symptoms Neurological: Reports No symptoms Psychiatric: Reports No symptoms Physical examination Most Recent Vital Signs: Most Recent Vital Signs Temperature 98.0 F 02/19/24 20:06 Temperature Source Oral 02/19/24 20:06 Temperature Source Infrared 02/19/24 12:23 Pulse Rate 78 02/19/24 20:06 Respiratory Rate 16 02/19/24 20:06 Blood Pressure 193/103 H 02/19/24 12:23 Blood Pressure Left Arm 220/88 02/19/24 20:06 Blood Pressure Position Sitting 02/19/24 20:06 O2 Sat by Pulse Oximetry 95 02/19/24 20:06 Oxygen Delivery Method Room Air 02/19/24 21:00 Height 6 ft 02/19/24 20:06 Weight 98.9 kg 02/19/24 20:06 Telemetry Type Remote Telemetry 02/19/24 21:00 Telemetry Monitoring Started 02/19/24 21:00 Telemetry Heart Rate 57 L 02/19/24 21:00 EKG SD Interval 0.18 02/19/24 21:00 EKG QRS Interval 0.07 02/19/24 21:00 EKG QT Interval 0.45 H 02/19/24 21:00 Telemetry Strip Reading Sinus Rhythm / Sinus Arrhythmia 02/19/24 21:00 Appearance: Positive No Apparent Distress and Alert and Oriented x3 Skin: Positive Warm and Good Turgor HEENT: Positive Normocephalic Neck: Positive Supple and Non-Tender Thyroid Chest/Lungs: Positive Symmetrical With Equal Breath Sounds, Clear to Auscultation Bilaterally and Good Air Movement all 4 Lung [place] Heart: Positive RRR and Pulses Normal GI/: Positive Soft, Nontender, Bowel Sounds Normal and No Distention Musculoskeletal: Positive Not Examined Extremities: Positive Edema (+2-3 pitting BLE) Neurological: Positive Sensation Intact, Motor intact, Alert and Oriented Psychiatric: Positive Oriented x4 Labs This Visit Labs This Visit: Labs This Visit 02/19/24 02/19/24 02/19/24 12:44 13:05 14:10 WBC 8.10 RBC 4.46 Hgb 13.0 Hct 40.3 MCV 90.4 MCH 29.1 MCHC 32.3 RDW Coeff of Ashwin 12.5 Plt Count 284 Immature Gran % (Auto) 0.2 Neut % (Auto) 67.7 Lymph % (Auto) 23.5 Martin % (Auto) 6.9 Eos % (Auto) 1.2 Baso % (Auto) 0.5 Neut # (Auto) 5.5 Lymph # (Auto) 1.9 Martin # (Auto) 0.6 Eos # (Auto) 0.1 Baso # (Auto) 0.0 Immature Gran # (Auto) 0.0 Sodium 140.3 Potassium 3.32 L Chloride 100.9 Carbon Dioxide 29.4 Anion Gap 13.32 BUN 10.4 Creatinine 0.76 Estimated GFR (MDRD) 73.00 BUN/Creatinine Ratio 13.68 Glucose 151.3 H Calcium 8.89 Magnesium Total Bilirubin 0.72 AST 32.1 ALT 18.3 Alkaline Phosphatase 81.4 Troponin I 0.019 NT-Pro-B Natriuret Pep 1100 H Total Protein 7.79 Albumin 4.37 Globulin 3.42 Albumin/Globulin Ratio 1.27 TSH D-Dimer 1577.46 H Urine Color Yellow Urine Clarity Clear Urine pH 7.0 Ur Specific [place] 1.025 Urine Protein 3+ H Urine Glucose (UA) Negative Urine Ketones Negative Urine Blood 2+ H Urine Nitrite Negative Urine Bilirubin Negative Urine Urobilinogen 0.2 Ur Leukocyte Esterase Negative Urine Microscopic RBC 20-30 Ur Squamous Epith Cells 0-2 SARS CoV-2 RNA Rapid JAYA Negative 02/19/24 02/19/24 15:34 15:44 WBC RBC Hgb Hct MCV MCH MCHC RDW Coeff of Ashwin Plt Count Immature Gran % (Auto) Neut % (Auto) Lymph % (Auto) Martin % (Auto) Eos % (Auto) Baso % (Auto) Neut # (Auto) Lymph # (Auto) Martin # (Auto) Eos # (Auto) Baso # (Auto) Immature Gran # (Auto) Sodium Potassium Chloride Carbon Dioxide Anion Gap BUN Creatinine Estimated GFR (MDRD) BUN/Creatinine Ratio Glucose Calcium Magnesium 1.35 L Total Bilirubin AST ALT Alkaline Phosphatase Troponin I 0.033 NT-Pro-B Natriuret Pep Total Protein Albumin Globulin Albumin/Globulin Ratio TSH 2.990 D-Dimer Urine Color Urine Clarity Urine pH Ur Specific [place] Urine Protein Urine Glucose (UA) Urine Ketones Urine Blood Urine Nitrite Urine Bilirubin Urine Urobilinogen Ur Leukocyte Esterase Urine Microscopic RBC Ur Squamous Epith Cells SARS CoV-2 RNA Rapid JAYA Imaging Imaging: EXAM: CHEST ONE-VIEW HISTORY: Dyspnea COMPARISON: Chest radiograph series from 04/17/2023 FINDINGS: The heart size is prominent. The pulmonary vasculature is normal. No consolidating infiltrates are detected. No pneumothoraces or pleural effusions. IMPRESSION: 1. No acute cardiopulmonary disease. EXAM: CT ANGIOGRAPHY OF THE CHEST History: Dyspnea, elevated D-dimer Technique: 1.[address] of the chest utilizing CT angiography protocol. Multiplanar and maximum intensity projection reformations were performed. FINDINGS: Technically adequate for evaluation of pulmonary arteries and aorta. There are no pulmonary artery filling defects. Subtle ground-glass opacity and interlobular septal thickening. No mediastinal lymphadenopathy. Atherosclerotic calcification of the aorta and coronary arteries. No acute chest wall abnormality. No acute findings of the upper abdomen. Impression: 1. No evidence of pulmonary artery thrombus 2. Minor ground-glass opacity and septal thickening suspect for edema. No pleural fluid. Review Statement Review Statement: I have independently reviewed and interpreted the labs/EKGs/imaging that were ordered by the ER provider. I have reviewed all outside records that are available currently in our EMR including imaging/notes/labs from previous v isits. Plan Plan: 1. CHFpEF exacerbation - last echo in 2018 EF 66.70%, lasix 20 mg Q8H, I&O, daily weight, schedule echo outpatient upon discharge 2. New Onset Atrial Fibrillation - metoprolol tartrate 12.5 mg bid, lovenox Q24H - will d/c on eliquis 3. Hypomagnesemia - replaced in ER, repeat in am 4. Hypokalemia - replaced in ER, repeat in am 5. Hypertensive Urgency - restart home meds, will adjust if needed, hydralazine ordered Q6H prn 6. GERD - chronic, continue home meds DVT Prophylaxis: Lovenox Time Spent: Greater than 80 minutes spent with patient, 50% of the time spent with this patient was devoted to counseling and coordination of care. [facility] Plannin minutes spent discussing advance care planning. Disposition: Admit to: Med/Surg Observation Discussed Plan of Care with Dr. Wasserman. Medications Medication Orders: Medications Ordered Category Date Time Status 0.9 % Sodium Chloride [Saline Flush] Meds 02/19/24 12:56 Active 1 syr IVF PRN PRN Acetaminophen [Tylenol] Meds 02/19/24 17:34 Active 650 mg PO Q4H PRN Bupropion HCl [Wellbutrin Xl] Meds 02/20/24 09:00 Active 300 mg PO DAILY Celecoxib [Celebrex] Meds 02/20/24 09:00 Active 200 mg PO DAILY Duloxetine HCl [Cymbalta] Meds 02/20/24 09:00 Active 60 mg PO DAILY Enoxaparin Sodium [Lovenox] Meds 02/20/24 09:00 Active 40 mg SUBCUT DAILY Furosemide [Lasix] Meds 02/20/24 01:00 Active 20 mg IVP Q8H Levothyroxine Sodium [Synthroid] Meds 02/20/24 06:00 Active 100 mcg PO QDAC2 Levothyroxine Sodium [Synthroid] Meds 02/20/24 06:00 Active 25 mcg PO QDAC2 Lisinopril [Zestril] Meds 02/19/24 21:00 Active 20 mg PO BID Metoprolol Tartrate [Lopressor] Meds 02/19/24 21:00 Active 12.5 mg PO BID Montelukast Sodium [Singulair] Meds 02/19/24 21:00 Active 10 mg PO BEDTIME Omeprazole [Prilosec] Meds 02/20/24 09:00 Active 20 mg PO DAILY linaclotide [Linzess] Meds 02/20/24 09:00 Pending 145 mcg PO DAILY
[2024-02-19] MEDS: LOPRESSOR PO SCH (21:56)
[2024-02-19] MEDS: ZESTRIL PO SCH (21:57)
[2024-02-19] MEDS: SINGULAIR PO SCH (21:58)
[2024-02-19] MEDS: REGLAN IVP PRN (22:48)
--- NOTE | 2024-02-19 23:39 | CT ---
EXAM: CT OF THE HEAD WITHOUT CONTRAST History: Headache, hypertension. Technique: Multiplanar CT images through the head were obtained without the administration of IV con trast Findings: Visualized paranasal sinuses and mastoid air cells are clear in general. No acute calvari al abnormalities. Intracranially the ventricular cisternal spaces are normal in size, shape and configuration for a pat ient of this age. No dominant mass or midline shift. No hydrocephalous. No acute intracranial hemo rrhage or abnormal extraaxial fluid collections. Impression: No acute intracranial process All CT scans are performed using dose optimization techniques as appropriate to the performed exam an d include at least one of the following: Automated exposure control, adjustment of the mA and/or kV according t o size, and the use of iterative reconstruction technique.
[2024-02-20] MEDS: TORADOL IVP STA (00:54)
[2024-02-20] MEDS: LASIX IVP SCH ×2 (00:56→07:55)
[2024-02-20] MEDS: MORPHINE 2 MG/ML SYRINGE IVP PRN (02:22)
[2024-02-20] MEDS: TYLENOL PO PRN (05:11)
[2024-02-20] MEDS: HYDRALAZINE HCL IVP PRN (05:27)
[2024-02-20] MEDS: SYNTHROID PO SCH ×2 (05:33)
[2024-02-20 06:10] LABS: BASOPHILS % (AUTO) 0.1 % (0.0-3.0); HEMATOCRIT 42.6 % (37.0-47.0); HEMOGLOBIN 13.9 g/dl (12.0-16.0); IMMATURE GRANULOCYTE # (AUTO) 0.1 (0.0-1.0); IMMATURE GRANULOCYTE % (AUTO) 0.3 % (0.0-5.0); LYMPHOCYTES # (AUTO) 1.8 K/uL (0.60-3.4); LYMPHOCYTES % (AUTO) 11.6 (10.0-50.0); MEAN CORPUSCULAR HEMOGLOBIN 29.4 pg (27.0-31.0); MEAN CORPUSCULAR HGB CONC 32.6 (31.8-35.4); MEAN CORPUSCULAR VOLUME 90.1 fl (81.0-99.0); MONOCYTES # (AUTO) 0.5 K/uL (0.4-2.0); NEUTROPHILS # (AUTO) 12.8 K/ul (2.0-6.9); RDW COEFFICIENT OF VARIATION 12.9 % (11.6-14.8); RED BLOOD COUNT 4.73 10^6/ul (4.20-5.40)
[2024-02-20] MEDS: ZOFRAN 4 MG/2 ML IVP PRN (06:21)
[2024-02-20 06:33] LABS: ALANINE AMINOTRANSFERASE 23.1 U/L (0-35); ALBUMIN 4.78 g/dL (3.5-5.0); ALKALINE PHOSPHATASE 96.3 U/L (53-141); ASPARTATE AMINO TRANSFERASE 34.3 U/L (14-36); BILIRUBIN,TOTAL 0.91 mg/dL (0.2-1.3); BLOOD UREA NITROGEN 13.1 mg/dL (7-17); CALCIUM 9.22 mg/dL (8.4-10.2); CARBON DIOXIDE 34.6 mmol/L (22-30.0); CHLORIDE 95.2 mmol/L (98-107); CREATININE 0.99 mg/dL (0.60-1.30); GLUCOSE 156.6 mg/dL (74-106); MAGNESIUM 1.65 mg/dL (1.6-2.3); POTASSIUM 3.2 mmol/L (3.5-5.1); SODIUM 138.4 mmol/L (134.5-145); TOTAL PROTEIN 8.42 g/dL (6.3-8.2)
[2024-02-20 06:35] LABS: PLATELET COUNT 391 10^3/uL (140-440); WHITE BLOOD COUNT 15.12 K/ul (4.6-10.2)
[2024-02-20] MEDS ORDERED: ZESTRIL PO SCH (07:25)
[2024-02-20] MEDS: COZAAR PO SCH (07:55)
[2024-02-20] MEDS: K-DUR PO ONE (08:50)
[2024-02-20] MEDS ORDERED: LASIX IVP SCH (09:00)
[2024-02-20] MEDS ORDERED: NON-FORMULARY MEDICATION (Linaclotide [Linzess] 145 mcg capsule) PO SCH (09:00)
[2024-02-20] MEDS: CYMBALTA PO SCH (09:53)
[2024-02-20] MEDS: CELEBREX PO SCH (09:53)
[2024-02-20] MEDS: AMITIZA PO SCH (09:53)
[2024-02-20] MEDS: WELLBUTRIN XL PO SCH (09:54)
[2024-02-20] MEDS: LOVENOX SUBCUT SCH (09:54)
[2024-02-20] MEDS: PRILOSEC PO SCH (09:55)
[2024-02-20] MEDS: LOPRESSOR PO SCH (09:56)
[2024-02-20] MEDS: NORCO 5-325 PO ONE (11:35)
[2024-02-20] MEDS: PHENERGAN 25 MG/ML VIAL 12.5 MG in SODIUM CHLORIDE 50 ML IV ONE (13:03)
--- NOTE | 2024-02-20 13:20 | PCM.PROG ---
Date/Time Seen Date Seen by Provider: 02/20/24 Time Seen by Provider: 09:15 Provider Provider: BETY TERESA, [facility] Chief Complaint Chief Complaint: A-FIB, CHF, HYPOMAGNESEMIA Subjective Subjective: BP continued to be elevated throughout the night despite multiple attempts at medication. Patient reports continued nausea and headache. Vomited multiple times on initial arrival to the floor. Denies vision changes, chest pain/palpitations, abd pain, or other symptoms. Objective Appearance: Positive No Apparent Distress and Alert and Oriented x3 Chest/Lungs: Positive Symmetrical With Equal Breath Sounds, Clear to Auscultation Bilaterally and Good Air Movement all 4 Lung [place] Heart: Positive Pulses Normal and Irregular Rhythm GI/: Positive Soft, Nontender, Bowel Sounds Normal and No Distention Musculoskeletal: Positive Other (+1-2 pitting edema BLE) and Not Examined Neurological: Positive Sensation Intact, Motor intact, Alert, Oriented and Muscle Strength 5/5 in Upper and Lower Extremities Bilaterally Vital Signs Vital Signs: Vital Signs: Last 24 Hours 02/19/24 18:00 02/19/24 20:06 02/19/24 20:06 Temperature 98.0 F Temperature Source Oral Pulse Rate 78 Respiratory Rate 16 Blood Pressure Blood Pressure Mean Blood Pressure Left Arm 220/88 Blood Pressure Location Blood Pressure Position Sitting O2 Sat by Pulse Oximetry 95 Oxygen Delivery Method Room Air Room Air Room Air Height 6 ft Weight 98.9 kg Telemetry Type Telemetry Monitoring Telemetry Heart Rate EKG MI Interval EKG QRS Interval EKG QT Interval Telemetry Strip Reading 02/19/24 21:00 02/19/24 21:00 02/19/24 22:00 Temperature Temperature Source Pulse Rate Respiratory Rate Blood Pressure Blood Pressure Mean Blood Pressure Left Arm Blood Pressure Location Blood Pressure Position O2 Sat by Pulse Oximetry Oxygen Delivery Method Room Air Room Air Height Weight Telemetry Type Remote Telemetry Telemetry Monitoring Started Telemetry Heart Rate 57 L EKG MI Interval 0.18 EKG QRS Interval 0.07 EKG QT Interval 0.45 H Telemetry Strip Reading Sinus Rhythm / Sinus Arrhythmia 02/19/24 22:00 02/19/24 23:00 02/20/24 00:00 Temperature 98.7 F Temperature Source Oral Pulse Rate 80 Respiratory Rate 18 Blood Pressure 201/84 H Blood Pressure Mean 123 Blood Pressure Left Arm Blood Pressure Location Left Arm Blood Pressure Position Sitting O2 Sat by Pulse Oximetry 95 Oxygen Delivery Method Room Air Room Air Room Air Height Weight Telemetry Type Telemetry Monitoring Telemetry Heart Rate EKG MI Interval EKG QRS Interval EKG QT Interval Telemetry Strip Reading 02/20/24 00:29 02/20/24 01:00 02/20/24 01:00 Temperature 98.4 F Temperature Source Oral Pulse Rate 74 Respiratory Rate 18 Blood Pressure 201/92 H Blood Pressure Mean 128 Blood Pressure Left Arm Blood Pressure Location Left Arm Blood Pressure Position Sitting O2 Sat by Pulse Oximetry 96 Oxygen Delivery Method Room Air Room Air Height Weight Telemetry Type Remote Telemetry Telemetry Monitoring Continues Telemetry Heart Rate 78 EKG MI Interval 0.16 EKG QRS Interval 0.09 EKG QT Interval 0.36 Telemetry Strip Reading Sinus Rhythm 02/20/24 02:00 02/20/24 02:00 02/20/24 02:42 Temperature 97.3 F L 97.3 F L Temperature Source Temporal Artery Scan Pulse Rate 85 85 Respiratory Rate 16 16 Blood Pressure 197/100 H Blood Pressure Mean 132 Blood Pressure Left Arm Blood Pressure Location Left Arm Blood Pressure Position Sitting O2 Sat by Pulse Oximetry 96 Oxygen Delivery Method Room Air Room Air Height 6 ft Weight 98.9 kg Telemetry Type Telemetry Monitoring Telemetry Heart Rate EKG MI Interval EKG QRS Interval EKG QT Interval Telemetry Strip Reading 02/20/24 03:00 02/20/24 04:00 02/20/24 05:00 Temperature Temperature Source Pulse Rate Respiratory Rate Blood Pressure Blood Pressure Mean Blood Pressure Left Arm Blood Pressure Location Blood Pressure Position O2 Sat by Pulse Oximetry Oxygen Delivery Method Room Air Room Air Room Air Height Weight Telemetry Type Telemetry Monitoring Telemetry Heart Rate EKG MI Interval EKG QRS Interval EKG QT Interval Telemetry Strip Reading 02/20/24 05:52 02/20/24 05:56 02/20/24 06:00 Temperature 97.8 F Temperature Source Temporal Artery Scan Pulse Rate 79 Respiratory Rate 16 Blood Pressure 205/105 H Blood Pressure Mean 138 Blood Pressure Left Arm Blood Pressure Location Left Arm Blood Pressure Position Sitting O2 Sat by Pulse Oximetry 98 Oxygen Delivery Method Room Air Room Air Height Weight 99.5 kg Telemetry Type Telemetry Monitoring Telemetry Heart Rate EKG MI Interval EKG QRS Interval EKG QT Interval Telemetry Strip Reading 02/20/24 07:00 02/20/24 07:00 02/20/24 08:00 Temperature Temperature Source Pulse Rate Respiratory Rate Blood Pressure Blood Pressure Mean Blood Pressure Left Arm Blood Pressure Location Blood Pressure Position O2 Sat by Pulse Oximetry Oxygen Delivery Method Room Air Room Air Height Weight Telemetry Type Remote Telemetry Telemetry Monitoring Continues Telemetry Heart Rate 101 H EKG MI Interval EKG QRS Interval 0.07 EKG QT Interval Telemetry Strip Reading wandering atrial pacer/ pac 02/20/24 08:00 02/20/24 09:00 02/20/24 10:00 Temperature Temperature Source Pulse Rate Respiratory Rate Blood Pressure Blood Pressure Mean Blood Pressure Left Arm Blood Pressure Location Blood Pressure Position O2 Sat by Pulse Oximetry Oxygen Delivery Method Room Air Room Air Room Air Height Weight Telemetry Type Telemetry Monitoring Telemetry Heart Rate EKG MI Interval EKG QRS Interval EKG QT Interval Telemetry Strip Reading 02/20/24 10:00 02/20/24 11:00 02/20/24 12:00 Temperature 97.8 F Temperature Source Temporal Artery Scan Pulse Rate 96 Respiratory Rate 16 Blood Pressure 168/74 H Blood Pressure Mean 105 Blood Pressure Left Arm Blood Pressure Location Left Arm Blood Pressure Position Supine O2 Sat by Pulse Oximetry 94 L Oxygen Delivery Method Room Air Room Air Room Air Height Weight Telemetry Type Telemetry Monitoring Telemetry Heart Rate EKG MI Interval EKG QRS Interval EKG QT Interval Telemetry Strip Reading Lab Results Lab Results: Lab Results: Last 24 Hours 02/20/24 02/19/24 02/19/24 05:37 15:44 15:34 WBC 15.12 H D RBC 4.73 Hgb 13.9 Hct 42.6 MCV 90.1 MCH 29.4 MCHC 32.6 RDW Coeff of Ashwin 12.9 Plt Count 391 D Immature Gran % (Auto) 0.3 Neut % (Auto) 85.0 H Lymph % (Auto) 11.6 [place] % (Auto) 3.0 Eos % (Auto) 0.0 Baso % (Auto) 0.1 Neut # (Auto) 12.8 H Lymph # (Auto) 1.8 [place] # (Auto) 0.5 Eos # (Auto) 0.0 Baso # (Auto) 0.0 Immature Gran # (Auto) 0.1 Sodium 138.4 Potassium 3.20 L Chloride 95.2 L Carbon Dioxide 34.6 H Anion Gap 11.80 BUN 13.1 Creatinine 0.99 Estimated GFR (MDRD) 54.00 BUN/Creatinine Ratio 13.23 Glucose 156.6 H Calcium 9.22 Magnesium 1.65 1.35 L Total Bilirubin 0.91 AST 34.3 ALT 23.1 Alkaline Phosphatase 96.3 Troponin I 0.033 NT-Pro-B Natriuret Pep Total Protein 8.42 H Albumin 4.78 Globulin 3.64 Albumin/Globulin Ratio 1.31 TSH 2.990 D-Dimer Urine Color Urine Clarity Urine pH Ur Specific Elida Urine Protein Urine Glucose (UA) Urine Ketones Urine Blood Urine Nitrite Urine Bilirubin Urine Urobilinogen Ur Leukocyte Esterase Urine Microscopic RBC Ur Squamous Epith Cells SARS CoV-2 RNA Rapid JAYA 02/19/24 02/19/24 02/19/24 14:10 13:05 12:44 WBC RBC Hgb Hct MCV MCH MCHC RDW Coeff of Ashwin Plt Count Immature Gran % (Auto) Neut % (Auto) Lymph % (Auto) Conway % (Auto) Eos % (Auto) Baso % (Auto) Neut # (Auto) Lymph # (Auto) [place] # (Auto) Eos # (Auto) Baso # (Auto) Immature Gran # (Auto) Sodium 140.3 Potassium 3.32 L Chloride 100.9 Carbon Dioxide 29.4 Anion Gap 13.32 BUN 10.4 Creatinine 0.76 Estimated GFR (MDRD) 73.00 BUN/Creatinine Ratio 13.68 Glucose 151.3 H Calcium 8.89 Magnesium Total Bilirubin 0.72 AST 32.1 ALT 18.3 Alkaline Phosphatase 81.4 Troponin I 0.019 NT-Pro-B Natriuret Pep 1100 H Total Protein 7.79 Albumin 4.37 Globulin 3.42 Albumin/Globulin Ratio 1.27 TSH D-Dimer 1577.46 H Urine Color Yellow Urine Clarity Clear Urine pH 7.0 Ur Specific [place] 1.025 Urine Protein 3+ H Urine Glucose (UA) Negative Urine Ketones Negative Urine Blood 2+ H Urine Nitrite Negative Urine Bilirubin Negative Urine Urobilinogen 0.2 Ur Leukocyte Esterase Negative Urine Microscopic RBC 20-30 Ur Squamous Epith Cells 0-2 SARS CoV-2 RNA Rapid JAYA Negative Additional Comments Additional Comments: I have independently reviewed and interpreted the labs/EKGs/imaging ordered during this hospital stay. I have reviewed outside records that are available in our EMR that pertain to medical stay including imaging/notes/labs from previous visits. Active Medications Active Medications: Medications Generic Name Dose Route Start Last Admin Trade Name Freq PRN Reason Stop Dose Admin Acetaminophen 650 mg 02/19/24 17:34 02/20/24 05:11 Acetaminophen 325 Mg Tablet PO 650 mg Q4H PRN Administration Mild Pain Bupropion HCl 300 mg 02/20/24 09:00 02/20/24 09:54 Bupropion Hcl 150 Mg Tab.Er.24h PO 300 mg DAILY SHASHA Administration Celecoxib 200 mg 02/20/24 09:00 02/20/24 09:53 Celecoxib 100 Mg Capsule PO 200 mg DAILY SHASHA Administration Duloxetine HCl 60 mg 02/20/24 09:00 02/20/24 09:53 Duloxetine Hcl 30 Mg Capsule.Dr PO 60 mg DAILY SHASHA Administration Enoxaparin Sodium 40 mg 02/20/24 09:00 02/20/24 09:54 Enoxaparin Sodium 40 Mg/0.4 Ml Syr SUBCUT 40 mg DAILY SHASHA Administration Furosemide 40 mg 02/20/24 08:00 02/20/24 07:55 Furosemide Inj 40 Mg/4 Ml Vial IVP 40 mg Q8H SHASHA Administration Hydralazine HCl 10 mg 02/19/24 21:44 02/20/24 05:27 Hydralazine Hcl 20 Mg/Ml Sdv IVP 10 mg Q6H PRN Administration Hypertension Levothyroxine Sodium 100 mcg 02/20/24 06:00 02/20/24 05:33 Levothyroxine Sodium 100 Mcg Tablet PO 100 mcg QDAC2 SHASHA Administration Levothyroxine Sodium 25 mcg 02/20/24 06:00 02/20/24 05:33 Levothyroxine Sodium 25 Mcg Tablet PO 25 mcg QDAC2 SHASHA Administration Losartan Potassium 50 mg 02/20/24 07:25 02/20/24 09:55 Losartan Potassium 25 Mg Tablet PO 50 mg DAILY SHASHA Administration Lubiprostone 24 mcg 02/20/24 09:00 02/20/24 09:53 Lubiprostone 24 Mcg Capsule PO 24 mcg BID SHASHA Administration Metoclopramide HCl 5 mg 02/19/24 21:46 02/20/24 10:06 Metoclopramide Hcl 10 Mg/2 Ml IVP 5 mg Q6H PRN Administration Nausea / Vomiting Metoprolol Tartrate 25 mg 02/20/24 09:00 02/20/24 09:56 Metoprolol Tartrate 25 Mg Tablet PO 25 mg BID SHASHA Administration Montelukast Sodium 10 mg 02/19/24 21:00 02/19/24 21:58 Montelukast Sodium 10 Mg Tablet PO 10 mg BEDTIME SHASHA Administration Omeprazole 20 mg 02/20/24 09:00 02/20/24 09:55 Omeprazole 20 Mg Capsule. PO 20 mg QDAC2 SHASHA Administration Ondansetron HCl 4 mg 02/19/24 21:46 02/20/24 11:52 Ondansetron Hcl/Pf 4 Mg/2 Ml Sdv IVP 4 mg Q6H PRN Administration Nausea / Vomiting Sodium Chloride 1 syr 02/19/24 12:56 02/19/24 15:08 0.9% Sodium Chloride 10 Ml Disp.Syrin IVF 1 syr PRN PRN Administration To flush IV Plan Plan: 1. CHFpEF exacerbation - last echo in 2017 EF 66.70%, lasix 20 mg Q8H, I&O, daily weight, schedule echo outpatient upon discharge 2. New Onset Atrial Fibrillation - metoprolol tartrate 25 mg bid, lovenox Q24H - will d/c on eliquis 3. Hypomagnesemia - replaced in ER, repeat in am 4. Hypokalemia - replaced in ER, trend and monitor 5. Hypertensive Urgency - losartan 50 mg BID, stopped lisinopril, hydralazine ordered Q6H prn 6. GERD - chronic, continue home meds 7. Intractable N/V - checking abdominal CT to r/o kidney stone, abdominal infection, etc and lumbar CT to r/o other etiologies d/t pain pump, zofran and reglan prn DVT Prophylaxis: Lovenox Review Statement Review Statement: I have personally discussed and reviewed the patient's visit/currently labs/imaging/decision making with Dr. Wasserman, my supervising attending. Greater that 50 minutes spent with patient, 50% of the time spent with this patient was devoted to counseling and coordination of care.
--- NOTE | 2024-02-20 14:22 | CT ---
EXAM: CT LUMBAR SPINE WITHOUT CONTRAST HISTORY: Low back pain COMPARISON: CT lumbar spine from 11/30/2017 TECHNIQUE: Multi-slice transaxial images are acquired through the lumbar spine with 2-D reconstructe d images. All CT scans are performed using dose optimization techniques as appropriate to the [facility] exam and includes at least one of the following: Automated exposure control, adjustment of the m A and/or kV according to size, and the use of iterative reconstruction technique. FINDINGS: There are five lumbar-type vertebrae. There is an interval age indeterminate mild superio r endplate compression fracture at L1. This has loss of approximately 40 - 45%. The other lumbar ve rtebrae are intact. There is chronic trace grade 1 anterolisthesis L3-L4. The intervertebral disc s paces are diffusely narrowed. Previous posterior fusion has been performed at L4-L5 with transpedicu lar screws in satisfactory position. There is a Baclofen pump type device in the right hip region. An intrathecal catheter extends into the lumbar thecal sac and then extends cephalad to the thoracic region. No acute subluxation. The aorta is atherosclerotic. A left adrenal nodule is 2.6 cm with low attenuation. A similar right adrenal nodule is 1.8 cm. Segmental analysis: T12-L1: A disc spur complex effaces the thecal sac and the central canal diameter is moderately narr owed. The facets and ligamentum flavum are hypertrophic with moderate right greater than left neural foramen stenosis. L1-L2: A disc spur complex effaces the thecal sac. The facets and ligamentum flavum are hypertrophi c. The central diameter is moderately narrowed. There is severe left and moderate right neural fora men stenosis. The subarticular recesses are likely effaced. L2-L3: A disc spur complex effaces the thecal sac and when combined with facet and ligamentum flavum hypertrophy there is moderate central canal stenosis. There is moderate left greater than right grabiel ral foramen stenosis. L3-L4: Laminectomies have been performed in the past. A disc spur complex effaces the thecal sac. The central canal diameter is mildly narrowed. The facets are hypertrophic without significant neura l foramen stenosis. L4-L5: The posterior fusion is again noted. There is suggestion of previous laminectomies. A spondy litic ridge effaces the thecal sac and there is suggestion of mild central canal stenosis. The facet s hypertrophic with mild right neural foramen stenosis. The left neural foramen is maintained. L5-S1: A left hemilaminectomy has been performed. No recurrent disc herniation or central canal sten osis. The facets are hypertrophic with moderate right and left neural foramen stenosis. IMPRESSION: - Interval age indeterminate mild compression fracture at L1. - Previous posterior lumbar fusion at L4-L5. - Chronic trace grade 1 anterolisthesis at L3-L4. - Diffuse degenerative disc disease. - Bilateral adrenal adenomas. - Multilevel central canal and neural foramen stenosis as detailed. . All CT scans are performed using dose optimization techniques as appropriate to the performed exam an d include at least one of the following: Automated exposure control, adjustment of the mA and/or kV according t o size, and the use of iterative reconstruction technique.
--- NOTE | 2024-02-20 14:25 | CT ---
EXAM: CT ABDOMEN AND PELVIS WITHOUT CONTRAST HISTORY: Vomiting. TECHNIQUE: CT acquisition of the abdomen and pelvis from the lower thorax through the pelvis without IV contrast administration. 2-D coronal and sagittal reformatted images were obtained from the axial source images. The lumbar spine was also imaged but will be interpreted separately. Oral Contrast: None. CT Dose Reduction Techniques Performed: Yes. COMPARISON: 09/29/2023 FINDINGS: Visualized portions of the lower chest included in this examination of the abdomen and pelvis show mi ld ground-glass of both lower lobes, and tree in bud nodularity of the left lower lobe, new since the prior study. Calcified right hilar nodes, and coronary artery calcifications. 0.9 cm nodule of the right breast upper outer quadrant at about 10 o'clock. Evaluation of the solid abdominal organs is limited without IV contrast. No obvious liver mass. No biliary tree dilatation. Cholecystectomy, again noted. The pancreas has a normal appearance. Stabl e to 2.4 cm adenoma of the left adrenal gland. Stable adenomatous thickening of the right adrenal gl and. Calcified granuloma of the spleen, again noted. No renal or ureteral stones. No hydronephrosi s. Excreted contrast material fills the bladder. No visible filling defect. Hysterectomy, again no jessica. No visible adnexal mass. Colonic diverticulosis. No evidence of diverticulitis. No evidence of appendicitis. Electronic device in subcutaneous fat of the right abdomen with catheter entering t he spinal canal posteriorly at the level of L1-2, again noted. No free air or free fluid. No enlarg ed lymph nodes are identified. Bone window images show no significant lytic or sclerotic bone lesions. Right hip arthroplasty, only partially imaged, again noted. Moderate to severe degenerative changes of the left hip, similar to before. Interval development of old, healed fracture of the right inferior pubic ramus. IMPRESSION: 1. No acute findings in the abdomen or pelvis. 2. Colonic diverticulosis, again noted. No evidence of diverticulitis. 3. Cholecystectomy and hysterectomy, again noted. 4. Mild infectious bronchiolitis of the left lower lobe, and mild pneumonia versus atelectasis of gracie th lower lobes. 5. 0.9 cm nodule of the right breast 10 o'clock position. If the patient has not had recent mammogr ams, then mammograms would now be recommended. 6. For findings of the lumbar spine, please refer to separate report. All CT scans are performed using dose optimization techniques as appropriate to the performed exam an d include at least one of the following: Automated exposure control, adjustment of the mA and/or kV according t o size, and the use of iterative reconstruction technique.
[2024-02-20] MEDS: ZITHROMAX PO SCH (14:55)
[2024-02-20] MEDS: ROCEPHIN 1 GM/50 ML D5W 1 GM/50 ML BAG IV SCH (14:56)
[2024-02-20] MEDS: IMITREX PO ONE (15:45)
[2024-02-20] MEDS: DECADRON IVP ONE (15:46)
[2024-02-21 05:35] LABS: BASOPHILS % (AUTO) 0.1 % (0.0-3.0); HEMATOCRIT 39.2 % (37.0-47.0); HEMOGLOBIN 12.4 g/dl (12.0-16.0); IMMATURE GRANULOCYTE % (AUTO) 0.3 % (0.0-5.0); LYMPHOCYTES # (AUTO) 1.8 K/uL (0.60-3.4); LYMPHOCYTES % (AUTO) 14.6 (10.0-50.0); MEAN CORPUSCULAR HEMOGLOBIN 29.5 pg (27.0-31.0); MEAN CORPUSCULAR HGB CONC 31.6 (31.8-35.4); MEAN CORPUSCULAR VOLUME 93.3 fl (81.0-99.0); MONOCYTES # (AUTO) 0.7 K/uL (0.4-2.0); MONOCYTES % (AUTO) 5.3 (0-10); NEUTROPHILS % (AUTO) 79.7 % (42.2-75.2); PLATELET COUNT 364 10^3/uL (140-440); RDW COEFFICIENT OF VARIATION 13.2 % (11.6-14.8)
[2024-02-21 05:51] LABS: ALANINE AMINOTRANSFERASE 18.4 U/L (0-35); ALBUMIN 4.27 g/dL (3.5-5.0); ALKALINE PHOSPHATASE 71.3 U/L (53-141); ASPARTATE AMINO TRANSFERASE 38.7 U/L (14-36); BILIRUBIN,TOTAL 0.99 mg/dL (0.2-1.3); BLOOD UREA NITROGEN 34.4 mg/dL (7-17); CALCIUM 8.62 mg/dL (8.4-10.2); CARBON DIOXIDE 32.3 mmol/L (22-30.0); CHLORIDE 97.9 mmol/L (98-107); GLUCOSE 128.9 mg/dL (74-106); MAGNESIUM 1.85 mg/dL (1.6-2.3); POTASSIUM 4.15 mmol/L (3.5-5.1); SODIUM 138.7 mmol/L (134.5-145); TOTAL PROTEIN 7.5 g/dL (6.3-8.2)
[2024-02-21 06:08] LABS: CREATININE 1.55 mg/dL (0.60-1.30)
--- NOTE | 2024-02-21 09:29 | PCM.PROG ---
Date/Time Seen Date Seen by Provider: 02/21/24 Time Seen by Provider: 08:30 Provider [facility] Chief Complaint Chief Complaint: A-FIB, CHF, HYPOMAGNESEMIA Subjective Subjective: Reports feeling some better today. Headache has improved. No longer short of breath. Still nauseated and requiring zofran. Objective Appearance: Positive No Apparent Distress and Alert and Oriented x3 Chest/Lungs: Positive Symmetrical With Equal Breath Sounds, Clear to Auscultation Bilaterally and Good Air Movement all 4 Lung [place] Heart: Positive RRR and Pulses Normal GI/: Positive Soft, Nontender, Bowel Sounds Normal and No Distention Musculoskeletal: Positive Not Examined Neurological: Positive Sensation Intact, Motor intact, Alert, Oriented and Muscle Strength 5/5 in Upper and Lower Extremities Bilaterally Vital Signs Vital Signs: Vital Signs: Last 24 Hours 02/20/24 10:00 02/20/24 10:00 02/20/24 11:00 Temperature 97.8 F Temperature Source Temporal Artery Scan Pulse Rate 96 Respiratory Rate 16 Blood Pressure 168/74 H Blood Pressure Mean 105 Blood Pressure Location Left Arm Blood Pressure Position Supine O2 Sat by Pulse Oximetry 94 L Oxygen Delivery Method Room Air Room Air Room Air Weight Telemetry Type Telemetry Monitoring Telemetry Heart Rate EKG [place] Interval EKG QRS Interval Telemetry Strip Reading 02/20/24 11:15 02/20/24 12:00 02/20/24 13:00 Temperature Temperature Source Pulse Rate 80 Respiratory Rate 18 Blood Pressure 162/70 H Blood Pressure Mean 100 Blood Pressure Location Left Arm Blood Pressure Position Supine O2 Sat by Pulse Oximetry Oxygen Delivery Method Room Air Room Air Weight Telemetry Type Remote Telemetry Telemetry Monitoring Continues Telemetry Heart Rate 84 EKG [place] Interval 0.20 EKG QRS Interval 0.07 Telemetry Strip Reading SA with PAC 02/20/24 14:00 02/20/24 17:31 02/20/24 19:00 Temperature 98.4 F 99.6 F Temperature Source Temporal Artery Scan Oral Pulse Rate 75 82 Respiratory Rate 18 16 Blood Pressure 175/106 H 157/76 H Blood Pressure Mean 129 103 Blood Pressure Location Right Arm Left Arm Blood Pressure Position Supine O2 Sat by Pulse Oximetry 96 90 L Oxygen Delivery Method Room Air Room Air Weight Telemetry Type Remote Telemetry Telemetry Monitoring Continues Telemetry Heart Rate 76 EKG [place] Interval 0.20 EKG QRS Interval 0.04 L Telemetry Strip [place] WITH PAC'S 02/20/24 19:20 02/20/24 22:00 02/21/24 01:00 Temperature 98.6 F Temperature Source Temporal Artery Scan Pulse Rate 69 Respiratory Rate 16 Blood Pressure 153/79 H Blood Pressure Mean 103 Blood Pressure Location Left Arm Blood Pressure Position Supine O2 Sat by Pulse Oximetry 94 L Oxygen Delivery Method Room Air Room Air Weight Telemetry Type Remote Telemetry Telemetry Monitoring Continues Telemetry Heart Rate 67 EKG [place] Interval 0.24 H EKG QRS Interval 0.06 Telemetry Strip Reading WITH 1ST DEGREE AVB & PAC'S 02/21/24 02:00 02/21/24 05:33 02/21/24 05:33 Temperature 97.0 F L 97.9 F Temperature Source Temporal Artery Scan Temporal Artery Scan Pulse Rate 65 68 Respiratory Rate 18 20 Blood Pressure 155/82 H 156/80 H Blood Pressure Mean 106 105 Blood Pressure Location Left Arm Left Arm Blood Pressure Position Supine Supine O2 Sat by Pulse Oximetry 95 95 Oxygen Delivery Method Room Air Room Air Weight 96.9 kg Telemetry Type Telemetry Monitoring Telemetry Heart Rate EKG [place] Interval EKG QRS Interval Telemetry Strip Reading Lab Results Lab Results: Lab Results: Last 24 Hours 02/21/24 04:56 WBC 12.60 H RBC 4.20 Hgb 12.4 Hct 39.2 MCV 93.3 MCH 29.5 MCHC 31.6 L RDW Coeff of Ashwin 13.2 Plt Count 364 Immature Gran % (Auto) 0.3 Neut % (Auto) 79.7 H Lymph % (Auto) 14.6 [place] % (Auto) 5.3 Eos % (Auto) 0.0 Baso % (Auto) 0.1 Neut # (Auto) 10.0 H Lymph # (Auto) 1.8 [place] # (Auto) 0.7 Eos # (Auto) 0.0 Baso # (Auto) 0.0 Immature Gran # (Auto) 0.0 Sodium 138.7 Potassium 4.15 Chloride 97.9 L Carbon Dioxide 32.3 H Anion Gap 12.65 BUN 34.4 H Creatinine 1.55 H D Estimated GFR (MDRD) 32.00 BUN/Creatinine Ratio 22.19 Glucose 128.9 H Calcium 8.62 Magnesium 1.85 Total Bilirubin 0.99 AST 38.7 H ALT 18.4 Alkaline Phosphatase 71.3 D Total Protein 7.50 Albumin 4.27 Globulin 3.23 Albumin/Globulin Ratio 1.32 Additional Comments Additional Comments: I have independently reviewed and interpreted the labs/EKGs/imaging ordered during this hospital stay. I have reviewed outside records that are available in our EMR that pertain to medical stay including imaging/notes/labs from previous visits. Active Medications Active Medications: Medications Generic Name Dose Route Start Last Admin Trade Name Freq PRN Reason Stop Dose Admin Acetaminophen 650 mg 02/19/24 17:34 02/21/24 05:41 Acetaminophen 325 Mg Tablet PO 650 mg Q4H PRN Administration Mild Pain Azithromycin 500 mg 02/20/24 14:45 02/21/24 08:43 Azithromycin 250 Mg Tablet PO 02/23/24 08:59 500 mg DAILY SHASHA Administration Bupropion HCl 300 mg 02/20/24 09:00 02/21/24 08:41 Bupropion Hcl 150 Mg Tab.Er.24h PO 300 mg DAILY SHASHA Administration Celecoxib 200 mg 02/20/24 09:00 02/21/24 08:40 Celecoxib 100 Mg Capsule PO 200 mg DAILY SHASHA Administration Duloxetine HCl 60 mg 02/20/24 09:00 02/21/24 08:42 Duloxetine Hcl 30 Mg Capsule.Dr PO 60 mg DAILY SHASHA Administration Enoxaparin Sodium 40 mg 02/20/24 09:00 02/21/24 08:39 Enoxaparin Sodium 40 Mg/0.4 Ml Syr SUBCUT 40 mg DAILY SHASHA Administration Furosemide 20 mg 02/22/24 06:00 Furosemide 20 Mg Tablet PO QDAC2 SHASHA Hydralazine HCl 10 mg 02/19/24 21:44 02/20/24 05:27 Hydralazine Hcl 20 Mg/Ml Sdv IVP 10 mg Q6H PRN Administration Hypertension CEFTRIAXONE/D5W 1 GM PREMIX 1 gm in 50 mls @ 100 mls/hr 02/20/24 15:00 02/21/24 08:39 Rocephin 1 Gm/50 Ml D5w IV 02/23/24 14:59 100 mls/hr DAILY SHASHA Administration Levothyroxine Sodium 100 mcg 02/20/24 06:00 02/21/24 05:11 Levothyroxine Sodium 100 Mcg Tablet PO 100 mcg QDAC2 SHASHA Administration Levothyroxine Sodium 25 mcg 02/20/24 06:00 02/21/24 05:11 Levothyroxine Sodium 25 Mcg Tablet PO 25 mcg QDAC2 SHASHA Administration Losartan Potassium 50 mg 02/20/24 07:25 02/21/24 08:42 Losartan Potassium 25 Mg Tablet PO 50 mg DAILY SHASHA Administration Lubiprostone 24 mcg 02/20/24 09:00 02/21/24 08:41 Lubiprostone 24 Mcg Capsule PO 24 mcg BID SHASHA Administration Metoclopramide HCl 5 mg 02/19/24 21:46 02/20/24 10:06 Metoclopramide Hcl 10 Mg/2 Ml IVP 5 mg Q6H PRN Administration Nausea / Vomiting Metoprolol Tartrate 25 mg 02/20/24 09:00 02/21/24 08:42 Metoprolol Tartrate 25 Mg Tablet PO 25 mg BID SHASHA Administration Montelukast Sodium 10 mg 02/19/24 21:00 02/20/24 20:36 Montelukast Sodium 10 Mg Tablet PO 10 mg BEDTIME SHASHA Administration Omeprazole 20 mg 02/20/24 09:00 02/21/24 05:11 Omeprazole 20 Mg Capsule.Dr PO 20 mg QDAC2 SHASHA Administration Ondansetron HCl 4 mg 02/19/24 21:46 02/21/24 07:00 Ondansetron Hcl/Pf 4 Mg/2 Ml Sdv IVP 4 mg Q6H PRN Administration Nausea / Vomiting Sodium Chloride 1 syr 02/20/24 17:15 02/20/24 20:38 0.9% Sodium Chloride 10 Ml Disp.Syrin IVF 1 syr PRN PRN Administration Maintain IV Patency Sodium Chloride 1 syr 02/20/24 21:00 02/21/24 05:14 0.9% Sodium Chloride 10 Ml Disp.Syrin IVF 1 syr Q8HR SHASHA Administration Plan Plan: 1. CHFpEF exacerbation - last echo in 2018 EF 66.70%, transition to PO lasix I&O, daily weight, schedule echo outpatient upon discharge 2. New Onset Atrial Fibrillation - metoprolol tartrate 25 mg bid, lovenox Q24H - will d/c on eliquis 3. Hypomagnesemia - replaced in ER, repeat in am 4. Hypokalemia - replaced in ER, trend and monitor 5. Hypertensive Urgency - Resolved, losartan 50 mg BID, stopped lisinopril, hydralazine ordered Q6H prn 6. GERD - chronic, continue home meds 7. Intractable N/V - Improving, still nauseated at this time and requiring zofran 8. Community Acquired Pneumonia - rocephin and azith DVT Prophylaxis: Lovenox Review Statement Review Statement: I have personally discussed and reviewed the patient's visit/currently labs/imaging/decision making with Dr. Wasserman, my supervising attending. Greater that 50 minutes spent with patient, 50% of the time spent with this patient was devoted to counseling and coordination of care.
[2024-02-21] MEDS: XANAX PO ONE (22:12)
[2024-02-22 05:48] LABS: BASOPHILS % (AUTO) 0.3 % (0.0-3.0); EOSINOPHILS # (AUTO) 0.1 K/ul (0.0-0.7); EOSINOPHILS % (AUTO) 0.7 % (0.0-7.0); HEMATOCRIT 36.7 % (37.0-47.0); HEMOGLOBIN 11.6 g/dl (12.0-16.0); IMMATURE GRANULOCYTE % (AUTO) 0.2 % (0.0-5.0); LYMPHOCYTES # (AUTO) 4.2 K/uL (0.60-3.4); LYMPHOCYTES % (AUTO) 32.7 (10.0-50.0); MEAN CORPUSCULAR HEMOGLOBIN 29.7 pg (27.0-31.0); MEAN CORPUSCULAR HGB CONC 31.6 (31.8-35.4); MEAN CORPUSCULAR VOLUME 93.9 fl (81.0-99.0); MONOCYTES # (AUTO) 1.1 K/uL (0.4-2.0); MONOCYTES % (AUTO) 8.5 (0-10); NEUTROPHILS # (AUTO) 7.4 K/ul (2.0-6.9); NEUTROPHILS % (AUTO) 57.6 % (42.2-75.2); PLATELET COUNT 315 10^3/uL (140-440); RDW COEFFICIENT OF VARIATION 13.1 % (11.6-14.8); RED BLOOD COUNT 3.91 10^6/ul (4.20-5.40); WHITE BLOOD COUNT 12.88 K/ul (4.6-10.2)
[2024-02-22 05:52] VITALS: PULSE 60; RESP 18
[2024-02-22 06:01] LABS: ALANINE AMINOTRANSFERASE 22.2 U/L (0-35); ALBUMIN 4.1 g/dL (3.5-5.0); ALKALINE PHOSPHATASE 67.6 U/L (53-141); ASPARTATE AMINO TRANSFERASE 54.9 U/L (14-36); BILIRUBIN,TOTAL 0.74 mg/dL (0.2-1.3); BLOOD UREA NITROGEN 50.3 mg/dL (7-17); CALCIUM 8.25 mg/dL (8.4-10.2); CARBON DIOXIDE 31.7 mmol/L (22-30.0); CHLORIDE 95.8 mmol/L (98-107); CREATININE 1.92 mg/dL (0.60-1.30); POTASSIUM 3.52 mmol/L (3.5-5.1); SODIUM 136.5 mmol/L (134.5-145); TOTAL PROTEIN 7.14 g/dL (6.3-8.2)
[2024-02-22] MEDS: LASIX TAB PO SCH (06:02)
--- NOTE | 2024-02-22 08:27 | DCSUM ---
Admission Date Admission Date: 02/19/24 Discharge Date Discharge Date: 02/22/24 Admission Diagnosis Admission Diagnosis: 1. CHFpEF exacerbation 2. New Onset Atrial Fibrillation 3. Hypomagnesemia 4. Hypokalemia 5. Hypertensive Urgency 6. GERDs Discharge Diagnosis Discharge Diagnosis: 1. CHFpEF exacerbation - Resolved, Echo 02/21/24 EF 62% 2. New Onset Atrial Fibrillation - Stable 3. Hypomagnesemia - Resolved 4. Hypokalemia - Resolved 5. Hypertensive Urgency - Resolved, losartan 50 mg BID, stopped lisinopril 6. GERD - chronic, stable 7. Intractable N/V - Resolved 8. Community Acquired Pneumonia - Improving Hospital Provider Hospital Provider[facility], [facility] Physician Primary Care Physician: TYREE KELLY Summary of History and Physical Summary of History and Physical: 84 yo female from local assisted living presented to th e ER with shortness of breath. States she was walking from the dining room at lunch an d become short of breath. Denies any chest pain, palpitations, or other symptoms. Has chronic edema in which she takes lasix for. Denies any diagnosis of chf. Does have pmh o f hypertension. While in ER, patient went into afib rvr. She was given labetalol to treat hypertension initially which then caused patient to return to sinus rhythm. No previous history of afib that she knows of. BNP was found to be elevated. Potassium and magnesium mildly low. Admitted to med/surg observation. Hospital Course Subjective: Initially during stay, patient was treated for CHF exacerbation, Hypertensive Urgency, and New onset Afib. She was given lasix 20 mg Q8H with minimal response. Increased to 40 mg Q8H and diuresed well. Transitioned to PO lasix home dose yesterday. Echo completed and showed EF of 62% with mild mitral regurg. Hypertensive Urgency required stopping home lisinopril dose, multiple doses of IV hydralazine with minimal response. She was started on losartan 50 mg daily and metoprolol 25 mg bid for afib. Both were effective in lowering BP. Headache noted due to BP. CT head completed and negative to r/o other etiologies. Resolved once BP returned to normal limits. Afib rate controlled during stay on metoprolol 25 mg BID. Lovenox given for anticoagulation and discharged with eliquis 2.5 mg bid due to age. Patient continued to report not feeling well and was nauseated. Ct abd pelv completed and showed pneumonia. Treated with rocephin and azith. Completed course of azith during stay. Sent with Rx for augmentin to complete course of total 7 days. Discussed findings of 0.9 cm nodule to R breast. Discussed to talk with PCP about ordering mammogram at hospital follow-up. No further changes to home medications unless otherwise noted. Appearance: Pleasant, No Apparent Distress and Alert HEENT: MMM, Supple and No JVD CVS: No Murmur, No Rubs and No Gallop Abdomen: Soft, Non-Tender and No Distention Respiratory: No Dyspnea Extremities: No Edema Vital Signs: Most Recent Vital Signs Temperature 96.9 F L 02/22/24 05:51 Temperature Source Temporal Artery Scan 02/22/24 05:51 Temperature Source Infrared 02/19/24 12:23 Pulse Rate 60 02/22/24 05:51 Respiratory Rate 18 02/22/24 05:51 Blood Pressure 129/71 02/22/24 05:51 Blood Pressure Mean 90 02/22/24 05:51 Blood Pressure Left Arm 220/88 02/19/24 20:06 Blood Pressure Location Right Arm 02/22/24 05:51 Blood Pressure Position Sitting 02/22/24 05:51 O2 Sat by Pulse Oximetry 90 L 02/22/24 05:51 Oxygen Delivery Method Room Air 02/22/24 05:51 Height 6 ft 02/20/24 02:42 Weight 98 kg 02/22/24 06:00 Telemetry Type Remote Telemetry 02/22/24 01:00 Telemetry Monitoring Continues 02/22/24 01:00 Telemetry Heart Rate 54 L 02/22/24 01:00 EKG KS Interval 0.18 02/22/24 01:00 EKG QRS Interval 0.07 02/22/24 01:00 EKG QT Interval 0.36 02/20/24 01:00 Telemetry Strip Reading SB WITH PAC 02/22/24 01:00 Imaging: EXAM: CT ABDOMEN AND PELVIS WITHOUT CONTRAST HISTORY: Vomiting. TECHNIQUE: CT acquisition of the abdomen and pelvis from the lower thorax through the pelvis without IV contrast administration. 2-D coronal and sagittal reformatted images were obtained from the axial source images. The lumbar spine was also imaged but will be interpreted separately. Oral Contrast: None. CT Dose Reduction Techniques Performed: Yes. COMPARISON: 09/29/2023 FINDINGS: Visualized portions of the lower chest included in this examination of the abdomen and pelvis show mild ground-glass of both lower lobes, and tree in bud nodularity of the left lower lobe, new since the prior study. Calcified right hilar nodes, and coronary artery calcifications. 0.9 cm nodule of the right breast upper outer quadrant at about 10 o'clock. Evaluation of the solid abdominal organs is limited without IV contrast. No obvious liver mass. No biliary tree dilatation. Cholecystectomy, again noted. The pancreas has a normal appearance. Stable to 2.4 cm adenoma of the left adrenal gland. Stable adenomatous thickening of the right adrenal gland. Calcified granuloma of the spleen, again noted. No renal or ureteral stones. No hydronephrosis. Excreted contrast material fills the bladder. No visible filling defect. Hysterectomy, again noted. No visible adnexal mass. Colonic diverticulosis. No evidence of diverticulitis. No evidence of appendicitis. Electronic device in subcutaneous fat of the right abdomen with catheter entering the spinal canal posteriorly at the level of L1-2, again noted. No free air or free fluid. No enlarged lymph nodes are identified. Bone window images show no significant lytic or sclerotic bone lesions. Right hip arthroplasty, only partially imaged, again noted. Moderate to severe degenerative changes of the left hip, similar to before. Interval development of old, healed fracture of the right inferior pubic ramus. IMPRESSION: 1. No acute findings in the abdomen or pelvis. 2. Colonic diverticulosis, again noted. No evidence of diverticulitis. 3. Cholecystectomy and hysterectomy, again noted. 4. Mild infectious bronchiolitis of the left lower lobe, and mild pneumonia versus atelectasis of both lower lobes. 5. 0.9 cm nodule of the right breast 10 o'clock position. If the patient has not had recent mammograms, then mammograms would now be recommended. 6. For findings of the lumbar spine, please refer to separate report. EXAM: CT LUMBAR SPINE WITHOUT CONTRAST HISTORY: Low back pain COMPARISON: CT lumbar spine from 11/30/2017 TECHNIQUE: Multi-slice transaxial images are acquired through the lumbar spine with 2-D reconstructed images. All CT scans are performed using dose optimization techniques as appropriate to the performed exam and includes at least one of the following: Automated exposure control, adjustment of the mA and/or kV according to size, and the use of iterative reconstruction technique. FINDINGS: There are five lumbar-type vertebrae. There is an interval age indeterminate mild superior endplate compression fracture at L1. This has loss of approximately 40 - 45%. The other lumbar vertebrae are intact. There is chronic trace grade 1 anterolisthesis L3-L4. The intervertebral disc spaces are diffusely narrowed. Previous posterior fusion has been performed at L4-L5 with transpedicular screws in satisfactory position. There is a Baclofen pump type device in the right hip region. An intrathecal catheter extends into the lumbar thecal sac and then extends cephalad to the thoracic region. No acute subluxation. The aorta is atherosclerotic. A left adrenal nodule is 2.6 cm with low attenuation. A similar right adrenal nodule is 1.8 cm. Segmental analysis: T12-L1: A disc spur complex effaces the thecal sac and the central canal diameter is moderately narrowed. The facets and ligamentum flavum are hypertrophic with moderate right greater than left neural foramen stenosis. L1-L2: A disc spur complex effaces the thecal sac. The facets and ligamentum flavum are hypertrophic. The central diameter is moderately narrowed. There is severe left and moderate right neural foramen stenosis. The subarticular reces ses are likely effaced. L2-L3: A disc spur complex effaces the thecal sac and when combined with facet and ligamentum flavum hypertrophy there is moderate central canal stenosis. There is moderate left greater than right neural foramen stenosis. L3-L4: Laminectomies have been performed in the past. A disc spur complex effaces the thecal sac. The central canal diameter is mildly narrowed. The facets are hypertrophic without significant neural foramen stenosis. L4-L5: The posterior fusion is again noted. There is suggestion of previous laminectomies. A spondylitic ridge effaces the thecal sac and there is suggestion of mild central canal stenosis. The facets hypertrophic with mild right neural foramen stenosis. The left neural foramen is maintained. L5-S1: A left hemilaminectomy has been performed. No recurrent disc herniation or central canal stenosis. The facets are hypertrophic with moderate right and left neural foramen stenosis. IMPRESSION: - Interval age indeterminate mild compression fracture at L1. - Previous posterior lumbar fusion at L4-L5. - Chronic trace grade 1 anterolisthesis at L3-L4. - Diffuse degenerative disc disease. - Bilateral adrenal adenomas. - Multilevel central canal and neural foramen stenosis as detailed. EXAM: CHEST ONE-VIEW HISTORY: Dyspnea COMPARISON: Chest radiograph series from 04/17/2023 FINDINGS: The heart size is prominent. The pulmonary vasculature is normal. No consolidating infiltrates are detected. No pneumothoraces or pleural effusions. IMPRESSION: 1. No acute cardiopulmonary disease EXAM: CT OF THE HEAD WITHOUT CONTRAST History: Headache, hypertension. Technique: Multiplanar CT images through the head were obtained without the administration of IV contrast Findings: Visualized paranasal sinuses and mastoid air cells are clear in general. No acute calvarial abnormalities. Intracranially the ventricular cisternal spaces are normal in size, shape and configuration for a patient of this age. No dominant mass or midline shift. No hydrocephalous. No acute intracranial hemorrhage or abnormal extraaxial fluid collections. Impression: No acute intracranial process Room #: 111 Reason for Echo: A-FIB, CHF, HTN M-Mode Normal Adult Results LV Dimensions Normal Adult Results AoV Opening excursions >1.6 >1.6 LVEDD-base- 3.5-5.8 5.6 Ao root dimensions 2.0-3.7 2.9 LVESD-base- 3.1-4.6 L. Atrium dimensions 1.9-3.8 6.0 Post. Wall thickness 0.8-1.1 1.4 IV septum (thickness) 0.7-1.2 1.4 Post. Wall excursion 0.72-1.3 NORMAL Septal motion NORMAL Systolic motion R. Ventricular cavity 1.5-2.0 NORMAL LVEF 60% 62% Paradoxical septal wall motion NORMAL 2-D : VALVES ARE NORMAL, LEFT VENTRICLE CONTRACTILITY--NORMAL, LEFT VENTRICLE SIZE 5.6 CM, NO EFFUSION, NO THROMBUS, MARKEDLY ENLARGED LEFT ATRIAL CAVITY COLOR-FLOW: MILD MITRAL REGURGITATION M-MODE: MV: NORMAL AV: NORMAL TV: NORMAL PV: CHAMBER SIZE: ENLARGED LEFT ATRIAL CAVITY--LEFT VENTRICLE CAVITY--BORDERLINE WALL MOTION: NORMAL PERICARDIUM: NORMAL INTERPRETATION: 1. LEFT VENTRICLE HYPERTROPHY WITH MARKEDLY ENLARGED LEFT ATRIAL CAVITY 2. NORMAL VALVES BY "M" MODE AND 2 "D" ECHO 3. LEFT VENTRICLE SIZE 5.6 CM-BORDERLINE, LEFT VENTRICLE CONTRACTILITY--NORMAL, 4. MILD MITRAL REGURGITATION BY COLOR FLOW Lab Results Last 24 Hours: 02/22/24 05:42 WBC 12.88 H RBC 3.91 L Hgb 11.6 L Hct 36.7 L MCV 93.9 MCH 29.7 MCHC 31.6 L RDW Coeff of Ashwin 13.1 Plt Count 315 Immature Gran % (Auto) 0.2 Neut % (Auto) 57.6 Lymph % (Auto) 32.7 [place] % (Auto) 8.5 Eos % (Auto) 0.7 Baso % (Auto) 0.3 Neut # (Auto) 7.4 H Lymph # (Auto) 4.2 H [place] # (Auto) 1.1 Eos # (Auto) 0.1 Baso # (Auto) 0.0 Immature Gran # (Auto) 0.0 Sodium 136.5 Potassium 3.52 Chloride 95.8 L Carbon Dioxide 31.7 H Anion Gap 12.52 BUN 50.3 H Creatinine 1.92 H Estimated GFR (MDRD) 25.00 BUN/Creatinine Ratio 26.19 Glucose 107.0 H Calcium 8.25 L Total Bilirubin 0.74 AST 54.9 H ALT 22.2 Alkaline Phosphatase 67.6 Total Protein 7.14 Albumin 4.10 Globulin 3.04 Albumin/Globulin Ratio 1.34 Discharge Instructions Discharge Planning: Discharge Planning > 40 minutes If patient is discharged with left ventricular systolic dysfunction: NA Discharged with a beta teddy? [] If no, why not? [] Discharged with an regina/arb? [] If no, why not? [] Discharge Home Today Diagnosis: Atrial fibrillation, Hypertensive Urgency, Community Acquired Pneumonia Diet: Cardiac; you can eat Yogurt while taking Antibiotic Activity: as tolerated Follow-up with PCP next week. Discuss need for mammogram to follow-up on CT scan. Medication Changes: Stop taking lisinopril for high blood pressure Start taking: Eliquis 2.5 mg twice a day (blood thinner for A fib) Metoprolol tartrate 25 mg twice a day (rate control for A fib) Losartan 50 mg daily (high blood pressure) Augmentin 875 take twice a day for 4 days (Start tomorrow - antibiotic for pneumonia). Continue Home Medications as indicated on Nursing Discharge Instructions. Discharge Medications: Medications at Discharge (Home Meds & RX) levothyroxine 100 mcg tablet 125 mcg PO DAILY 03/02/16 lisinopril 20 mg tablet 20 mg PO BID 03/02/16 montelukast 10 mg tablet (Singulair) 10 mg PO BEDTIME 09/30/18 bupropion HCl 300 mg 24 hr tablet, extended release (Wellbutrin XL) 300 mg PO DAILY 07/27/21 omeprazole 20 mg capsule,delayed release 20 mg PO DAILY 07/27/21 linaclotide 145 mcg capsule (Linzess) 145 mcg PO DAILY 09/29/23 dilaudid 11/01/23 potassium chloride 10 mEq capsule,extended release 10 meq PO DAILY 11/01/23 celecoxib 200 mg capsule 200 mg PO DAILY 02/19/24 duloxetine 60 mg capsule,delayed release 60 mg PO DAILY 02/19/24 fluticasone propionate 50 mcg/actuation nasal spray,suspension 1 spray intranasal ONCE 02/19/24 furosemide 20 mg tablet 20 mg PO DAILY 02/19/24 Discharge Plan Discharge Discharge Orders: Discharge Patient (ONCE); Ordered 02/22/24 Ordered By: BELKYS MARLOW Activity Restrictions/Additional Instructions: Discharge Home Today Diagnosis: Atrial fibrillation, Hypertensive Urgency, Community Acquired Pneumonia Diet: Cardiac; you can eat Yogurt while taking Antibiotic Activity: as tolerated Follow-up with PCP next week. Discuss need for mammogram to follow-up on CT scan. Medication Changes: Stop taking lisinopril for high blood pressure Start taking: Eliquis 2.5 mg twice a day (blood thinner for A fib) Metoprolol tartrate 25 mg twice a day (rate control for A fib) Losartan 50 mg daily (high blood pressure) Augmentin 875 take twice a day for 4 days (Start tomorrow - antibiotic for pneumonia). Continue Home Medications as indicated on Nursing Discharge Instructions. Instructions: Metoprolol (By mouth), Amoxicillin/Clavulanate Potassium (By mouth), Losartan (By mouth), Apixaban (By mouth), A-fib (Atrial Fibrillation) (GEN), Heart Healthy Diet (DC), Community Acquired Pneumonia (GEN), Hypertensive Crisis (GEN), Blood Thinners (GEN) Patient Disposition: HOME WITH FAMILY CARE Prescriptions: New amoxicillin-pot clavulanate 875-125 mg tablet 1 tab PO BID 4 Days Qty: 8 0RF Eliquis 2.5 mg tablet 2.5 mg PO BID Qty: 60 0RF losartan 50 mg tablet 50 mg PO DAILY Qty: 30 0RF metoprolol tartrate 25 mg Tablet 25 mg PO BID Qty: 60 0RF Continued levothyroxine 100 MCG tablet 125 mcg PO DAILY montelukast [Singulair] 10 MG tablet 10 mg PO BEDTIME potassium chloride 10 mEq capsule, extended release 10 meq PO DAILY (DME) dilaudid auto-injector 0 .ROUTE .MEDSUPPLY omeprazole 20 mg Capsule,Delayed Release(Dr/Ec) 20 mg PO DAILY bupropion HCl [Wellbutrin XL] 300 mg Tablet Extended Release 24 Hr 300 mg PO DAILY Linzess 145 mcg capsule 145 mcg PO DAILY celecoxib 200 mg capsule 200 mg PO DAILY furosemide 20 mg tablet 20 mg PO DAILY fluticasone propionate 50 mcg/actuation spray,suspension 1 spray INTRANASAL ONCE duloxetine 60 mg capsule,delayed release(DR/EC) 60 mg PO DAILY Discontinued lisinopril 20 MG tablet 20 mg PO BID Did you review [place] FLOW FLOOR ATTENDANT for ALL controlled substances?: No Discussed opioids are addictive and Narcan is available by prescription or from pharmacy.: No Condition: Stable Referrals: TYREE KELLY, LANI,HOME CARE MANAGER RN [Primary Care Provider] - 03/04/24 11:00 am
[2024-02-22 09:47] VITALS: BP 128/66; TEMP 97.9
--- NOTE | 2024-02-22 09:50 | ECHO2D ---
Date of Exam: 02/21/2024 Ordering Physician: HOSPITALIST--DEV/ PCP Vicki KELLY DNP, SHOWCASE MAKER Room #: 111 Reason for Echo: A-FIB, CHF, HTN M-Mode Normal Adult Results LV Dimensions Normal Adult Results AoV Opening excursions >1.6 >1.6 LVEDD-base- 3.5-5.8 5.6 Ao root dimensions 2.0-3.7 2.9 LVESD-base- 3.1-4.6 L. Atrium dimensions 1.9-3.8 6.0 Post. Wall thickness 0.8-1.1 1.4 IV septum (thickness) 0.7-1.2 1.4 Post. Wall excursion 0.72-1.3 NORMAL Septal motion NORMAL Systolic motion R. Ventricular cavity 1.5-2.0 NORMAL LVEF 60% 62% Paradoxical septal wall motion NORMAL 2-D : VALVES ARE NORMAL, LEFT VENTRICLE CONTRACTILITY--NORMAL, LEFT VENTRICLE SIZE 5.6 CM, NO EFFUSION, NO THROMBUS, MARKEDLY ENLARGED LEFT ATRIAL CAVITY COLOR-FLOW: MILD MITRAL REGURGITATION M-MODE: MV: NORMAL AV: NORMAL TV: NORMAL PV: CHAMBER SIZE: ENLARGED LEFT ATRIAL CAVITY--LEFT VENTRICLE CAVITY--BORDERLINE WALL MOTION: NORMAL PERICARDIUM: NORMAL INTERPRETATION: 1. LEFT VENTRICLE HYPERTROPHY WITH MARKEDLY ENLARGED LEFT ATRIAL CAVITY 2. NORMAL VALVES BY "M" MODE AND 2 "D" ECHO 3. LEFT VENTRICLE SIZE 5.6 CM-BORDERLINE, LEFT VENTRICLE CONTRACTILITY--NORMAL, 4. MILD MITRAL REGURGITATION BY COLOR FLOW MTDD
[2024-02-22] MEDS: ZOFRAN ODT PO STA (12:47)
== END 2024-02-22 13:20 | disposition home or self-care (01) | DRG 291 ==
LOC: MEDSURG A 12:18 → ED 12:18 → SCU 12:18 → MEDSURG A 20:05
PROVIDERS: ADMIT Hospitalist; ATTEND Nurse Practitioner Family
DX: R60.0 Localized edema; I50.33 Acute on chronic diastolic (congestive) heart failure; I16.0 Hypertensive urgency; I48.0 Paroxysmal atrial fibrillation; E78.6 Lipoprotein deficiency; J18.9 Pneumonia, unspecified organism; E83.42 Hypomagnesemia

== ENCOUNTER 2025-01-30 12:48 | Observation (INO) ==
[2025-01-30] MEDS: CARDIZEM INJ IVP STA (13:48)
--- NOTE | 2025-01-30 13:57 | ED.PDOC ---
General [facility] ED Provider: Dr. NAKIA TROTTER MD Chief Complaint: Arrhythmia Stated Complaint: 85 years old female with history of A-fib comes emergency room for palpitations. Patient reports that she has been feeling that her heart is racing for the last couple of days she is taking her medications since she was diagnosed with A-fib 6 months ago but denies any chest pain or shortness of breath no nausea or vomiting no changes in bowel or urine. Time Seen by Provider: 01/30/25 13:08 Information Source: Patient and Family Nursing and Triage Documentation Reviewed and Agree: Yes Opioid Naive vs. Tolerant What is Opioid Naive?: *Opioid Naive implies the patient is not already taking opioids or not chronically receiving opioids on a daily basis. *PRN dosing is not "usually" associated with tolerance. *Patients are at higher risk of over-sedation and aspiration. What is Opioid Tolerant?: *Opioid Tolerance implies less than the expected response to an opioid. *Acquired tolerance is defined by the patient taking 60mg of oral morphine daily (or equianalgesic dose of another opioid) for 1 week or more. *Often associated with chronic pain. *May take more than usual dose to achieve desired pain control. Review of Systems Review Of Systems Constitutional: Reports No symptoms All Other Systems: Reviewed and Negative [facility] Medical History Anxiety F41.9 - Anxiety disorder, unspecified (ICD-10) Depression F32.A - Depression, unspecified (ICD-10) Implantable intrathecal infusion pump present Z96.89 - Presence of other specified functional implants (ICD-10) Hypertension for 10 years I10 - Essential (primary) hypertension (ICD-10) Family History Mother Colon cancer FATHER Old age Social History Smoking and tobacco status: Never smoker Surgical History History of musculoskeletal system surgery back surg. 2000 x 3 Z98.890 - Other specified postprocedural states (ICD-10) History of gastrointestinal surgery gall bladder removed doesnt know when Z98.890 - Other specified postprocedural states (ICD-10) Status post hysterectomy 20 years ago Z90.710 - Acquired absence of both cervix and uterus (ICD-10) Female Reproductive History Menstrual Hx Hysterectomy: Yes Hx Tubal Ligation: No Physical Exam Physical Exam Appearance: Reports Well-appearing Respiratory: Reports Airway patent, Breath sounds clear and Breath sounds equal Cardiovascular: Reports No rub, No murmur and Irregular rhythm GI/: Reports Soft and Nontender Musculoskeletal: Reports Normal strength and ROM intact Skin: Reports Warm and Normal color Neurological: Reports Sensation intact and Other (Resting tremors) Psychiatric: Reports Affect appropriate Interpretation EKG Interpretation EKG Interpretation By: ED Physician Time of EKG #1: 12:58 Rate: Tachy Rhythm: Other (afib) Ectopy: None [place]: NL Interpretation: no signs of acute ischemia Course Course 01/30/25 14:24 01/30/25 14:24 Orders, Labs, Meds: Lab Review 01/30/25 14:24 WBC 8.78 RBC 3.93 L Hgb 11.8 L Hct 36.9 L MCV 93.9 MCH 30.0 MCHC 32.0 RDW Coeff of Ashwin 12.7 Plt Count 308 Immature Gran % (Auto) 0.2 Neut % (Auto) 64.0 Lymph % (Auto) 27.1 [place] % (Auto) 7.2 Eos % (Auto) 1.0 Baso % (Auto) 0.5 Neut # (Auto) 5.6 Lymph # (Auto) 2.4 [place] # (Auto) 0.6 Eos # (Auto) 0.1 Baso # (Auto) 0.0 Immature Gran # (Auto) 0.0 Sodium 137.8 Potassium 3.56 Chloride 97.3 L Carbon Dioxide 33.9 H Anion Gap 10.16 BUN 22.9 H Creatinine 1.20 Estimated GFR (MDRD) 43.00 BUN/Creatinine Ratio 19.08 Glucose 142.8 H Calcium 8.74 Total Bilirubin 0.41 AST 30.9 ALT 18.9 Alkaline Phosphatase 68.7 Troponin I 0.017 NT-Pro-B Natriuret Pep 922 H Total Protein 7.33 Albumin 4.02 Globulin 3.31 Albumin/Globulin Ratio 1.21 Orders Category Date Time Status EKG-(ED & IP/OBS ONLY) Stat CARDIO 01/30/25 13:10 Completed CBC W/ AUTO DIFF Stat LAB 01/30/25 14:24 Completed CMP [COMPREHENSIVE METABOLIC PANEL] Stat LAB 01/30/25 14:24 Completed NT-PROBNP(ED) Stat LAB 01/30/25 14:24 Completed TROPONIN I Stat LAB 01/30/25 14:24 Completed URINALYSIS C & S IF INDICATED Stat LAB 01/30/25 14:15 Uncollected Diltiazem HCl [Cardizem Inj] Meds 01/30/25 13:42 Discontinued 15 mg IVP ONCE STA Ondansetron HCl/Pf [Zofran Sdv] Meds 01/30/25 13:56 Discontinued 4 mg IVP ONCE STA CXR [CHEST, 1V AP ONLY] Stat RADS 01/30/25 14:15 Completed Medications Discontinued Medications Generic Name Dose Route Start Last Admin Trade Name Freq PRN Reason Stop Dose Admin Diltiazem HCl 15 mg 01/30/25 13:42 01/30/25 13:48 Diltiazem Hcl Inj 25 Mg/5 Ml Vial IVP 01/30/25 13:43 15 mg ONCE STA Administration Ondansetron HCl 4 mg 01/30/25 13:56 01/30/25 14:07 Ondansetron Hcl/Pf 4 Mg/2 Ml Sdv IVP 01/30/25 13:57 4 mg ONCE STA Administration Vital Signs: Temp Pulse Resp BP Pulse Ox 01/30/25 13:04 98.2 F 130 H 16 131/70 97 Patient with A-fib with RVR heart rate in the 140s normalized with 15 mg of Cardizem. Troponin is normal chest x-ray no acute findings as per radiology interpretation. Patient is already on Eliquis but she will need to be admitted for adjustment of her metoprolol dose decision of admission discussed with the patient and her daughter and they agree with admission case was discussed with hospitalist on-call Radha and she accepted the patient to be admitted under observation. Discharge Plan Discharge Patient Disposition: PLACED OBSERVATION Discharge Problem: A-fib Did you review [place] VAMP LINER for ALL controlled substances?: Not Applicable ED Provider: NAKIA TROTTER Condition: Stable
[2025-01-30] MEDS: ZOFRAN SDV IVP STA (14:07)
[2025-01-30 14:33] LABS: IMMATURE GRANULOCYTE # (AUTO) 0.0 (0.0-1.0); IMMATURE GRANULOCYTE % (AUTO) 0.2 % (0.0-5.0); RDW COEFFICIENT OF VARIATION 12.7 % (11.6-14.8)
[2025-01-30 14:45] LABS: CREATININE 1.2 mg/dL (0.60-1.30)
--- NOTE | 2025-01-30 15:06 | DI ---
CHEST RADIOGRAPH INDICATION: Palpitations COMPARISON: Chest radiograph(s) 02/19/2024 at 3110 TECHNIQUE: AP portable chest radiograph(s). 1 view(s) total. FINDINGS: Osteoarthrosis of spine right glenohumeral joint.Lungs are clear with no focal consolidations, pneumothoraces or pleural effusions. Cardiomediastinal silhouette is within normal limits. IMPRESSION: No acute cardiopulmonary process.
[2025-01-30] MEDS ORDERED: TYLENOL PO PRN (15:21)
[2025-01-30 16:25] VITALS: BMI 31.1
[2025-01-30] MEDS: K-DUR PO ONE (17:04)
[2025-01-30 17:38] LABS: GLUCOSE, URINE (UA) Negative (NEGATIVE); LEUKOCYTE ESTERASE ,URINE Negative (NEGATIVE); URINE, BLOOD Trace-intact (NEGATIVE)
[2025-01-30] MEDS ORDERED: FLONASE NAS PRN (17:46)
[2025-01-30] MEDS: MAGNESIUM SULF 2 G/50 ML BAG 2 GM/50 ML PIGGYBACK IV ONE (18:18)
[2025-01-30] MEDS: LOPRESSOR PO SCH (21:00)
[2025-01-30] MEDS: ELIQUIS PO SCH (21:00)
[2025-01-30] MEDS: BUSPAR PO SCH (21:00)
[2025-01-31] MEDS: ZOFRAN SDV IVP PRN (00:45)
[2025-01-31 05:28] LABS: IMMATURE GRANULOCYTE # (AUTO) 0.0 (0.0-1.0); IMMATURE GRANULOCYTE % (AUTO) 0.2 % (0.0-5.0); RDW COEFFICIENT OF VARIATION 12.8 % (11.6-14.8)
[2025-01-31 05:46] LABS: CREATININE 1.21 mg/dL (0.60-1.30)
[2025-01-31] MEDS: HYDROCHLOROTHIAZIDE PO SCH (08:18)
[2025-01-31] MEDS: MICRO-K CAP PO SCH (08:19)
[2025-01-31] MEDS: SYNTHROID PO SCH ×2 (08:19)
[2025-01-31] MEDS: ZYLOPRIM PO SCH (08:19)
[2025-01-31] MEDS: LASIX TAB PO SCH (08:19)
[2025-01-31] MEDS: PRILOSEC PO SCH (08:19)
[2025-01-31] MEDS: COZAAR PO SCH (08:19)
[2025-01-31] MEDS: DESVENLAFAXINE SUCCINATE 25 MG PO SCH (09:14)
[2025-01-31 10:06] VITALS: RESP 16; TEMP 98.7
[2025-01-31] MEDS: K-DUR PO ONE (10:24)
[2025-01-31] MEDS: K-DUR ONE (10:25)
--- NOTE | 2025-01-31 11:14 | PCM.SS ---
Provider Provider: HANK FALL [facility]-C, [facility] Date Admission Date: 01/30/25 Discharge Date Discharge Date: 01/31/25 Chief Complaint Reason For Visit: AFIB History of Present Illness History of Present Illness: Admitted 01/30/25 15:28, this 85 year old /WHITE/F with past medical history of hypothyroidism, hypertension, GERD, A-fib on chronic anticoagulation, anxiety, gout who presented to the ER with palpitations and elevated heart rate. Patient states that she has been having episodes of this for the last few days on and off. She feels the palpitations and feels a little lightheaded, but denies chest pain. She checked her pulse at home and it was in the 150s. In the ER she was noted to be in the 130s. She was given 1 dose of IV Cardizem and her heart rate went down into the 70s and 80s. She remained rate controlled. Admitted overnight to observation to monitor heart rate and blood pressure. Patient's magnesium was noted to be 1.5. She was given 2 g rider and it improved to 2.0. She was given potassium supplement with a goal of 4. TSH normal. Patient's metoprolol dose was increased to 50 mg twice a day. She has been tolerating this well. Heart rate remains in the 80s. She has not received any IV agents since being in the ER. She has a lot of anxiety about having more of these episodes. Orthostats were normal. She was ambulated out into the hallways and back to her room without any significant rise in her heart rate. She states she is feeling much better today she just overall worries about what to do if this happens again. We discussed in detail what her heart rate should be and when to be concerned. She knows she can return to the ER at any time. She denies having any chest pain or shortness of breath. She does have a pill pack that she recently filled, will reach out to her pharmacy in regards to changing her metoprolol dosage. She states she also has a follow-up with her provider on Sunday this coming week. Will discharge back to the assisted living today. [facility] Medical History Anxiety F41.9 - Anxiety disorder, unspecified (ICD-10) Depression F32.A - Depression, unspecified (ICD-10) Implantable intrathecal infusion pump present Z96.89 - Presence of other specified functional implants (ICD-10) Hypertension for 10 years I10 - Essential (primary) hypertension (ICD-10) Surgical History History of musculoskeletal system surgery back surg. 2000 x 3 Z98.890 - Other specified postprocedural states (ICD-10) History of gastrointestinal surgery gall bladder removed doesnt know when Z98.890 - Other specified postprocedural states (ICD-10) Status post hysterectomy 20 years ago Z90.710 - Acquired absence of both cervix and uterus (ICD-10) Family History Mother Colon cancer FATHER Old age Social History Smoking and tobacco status: Never smoker Medications Mecications: Medications at Discharge (Home Meds & RX) omeprazole 20 mg capsule,delayed release 20 mg PO DAILY 07/27/21 dilaudid 11/01/23 potassium chloride 10 mEq capsule,extended release 10 meq PO DAILY 11/01/23 fluticasone propionate 50 mcg/actuation nasal spray,suspension 1 spray intranasal ONCE PRN allergy symptoms 02/19/24 furosemide 20 mg tablet 20 mg PO DAILY 02/19/24 metoprolol tartrate 25 mg tablet 25 mg PO BID #60 tabs 02/22/24 allopurinol 100 mg tablet 100 mg PO DAILY 08/15/24 buspirone 10 mg tablet 10 mg PO 3XD 08/15/24 colchicine 0.6 mg tablet 0.6 mg PO DAILY PRN gout flare 08/15/24 levothyroxine 125 mcg tablet 125 mcg PO DAILY 08/15/24 losartan 100 mg-hydrochlorothiazide 12.5 mg tablet 1 tab PO DAILY 08/15/24 apixaban 5 mg tablet (Eliquis) 5 mg PO 2XD 12/24/24 desvenlafaxine succinate 25 mg tablet,extended release 24 hr 25 mg PO DAILY 01/30/25 Allergies Allergies Allergy/AdvReac Type Severity Reaction Status Date / Time No Known Allergies Allergy Verified 01/30/25 13:00 Review of Systems Constitutional: Reports Weakness; Denies Fever or Fatigue Head: Reports Normocephalic and Atraumatic Cardiovascular: Reports Irregular Heartbeat and Palpitations; Denies Chest pain Respiratory: Denies Cough or Shortness of air Gastrointestinal: Denies Nausea, Vomiting, Diarrhea, Heartburn, Abdominal pain or Melena Genitourinary: Denies Dysuria or Frequency Neurological: Denies Headache, Dizziness or Syncope Psychiatric: Reports Anxiety Physical Examination Appearance: Positive Well-appearing, Well-nourished, No Apparent Distress and Alert and Oriented x3 Head: Positive Normocephalic and Atraumatic Neck: Positive Supple, Non-Tender and Trachea Midline Heart: Positive Other (+irregularly irregular, rate controlled ) Respiratory: Positive Breath Sounds Clear, Bilaterally and Respirations Nonlabored; Negative Crackles, Rhonchi or Wheezes GI/: Positive Soft, Nontender, Bowel sounds normal and No Distention Extremities: Positive Pedal Pulses Palpable Bilaterally; Negative Edema Neurological: Positive Cranial nerves intact, Alert and Oriented Psychiatric: Positive Normal Judgement, Normal Insight, Affect Appropriate, Mood Appropriate and Anxious Vital Signs (Last 4 Hours) Vital Signs Last 4 Hours: Vital Signs: Last 4 Hours 01/31/25 08:00 01/31/25 08:00 01/31/25 08:50 Temperature Temperature Source Pulse Rate Respiratory Rate Blood Pressure Blood Pressure Mean Blood Pressure Location Blood Pressure Position O2 Sat by Pulse Oximetry Oxygen Delivery Method Room Air Room Air Room Air 01/31/25 09:28 01/31/25 10:00 01/31/25 10:20 Temperature 98.7 F Temperature Source Temporal Artery Scan Pulse Rate 77 Respiratory Rate 16 Blood Pressure 125/70 Blood Pressure Mean 88 Blood Pressure Location Left Arm Blood Pressure Position Supine O2 Sat by Pulse Oximetry 94 L Oxygen Delivery Method Room Air Room Air Room Air Labs This Visit Labs This Visit: Labs This Visit 01/30/25 01/30/25 01/30/25 14:24 17:25 17:53 WBC 8.78 RBC 3.93 L Hgb 11.8 L Hct 36.9 L MCV 93.9 MCH 30.0 MCHC 32.0 RDW Coeff of Ashwin 12.7 Plt Count 308 Immature Gran % (Auto) 0.2 Neut % (Auto) 64.0 Lymph % (Auto) 27.1 Cooke % (Auto) 7.2 Eos % (Auto) 1.0 Baso % (Auto) 0.5 Neut # (Auto) 5.6 Lymph # (Auto) 2.4 [place]oke # (Auto) 0.6 Eos # (Auto) 0.1 Baso # (Auto) 0.0 Immature Gran # (Auto) 0.0 Sodium 137.8 Potassium 3.56 Chloride 97.3 L Carbon Dioxide 33.9 H Anion Gap 10.16 BUN 22.9 H Creatinine 1.20 Estimated GFR (MDRD) 43.00 BUN/Creatinine Ratio 19.08 Glucose 142.8 H Calcium 8.74 Magnesium 1.56 L Total Bilirubin 0.41 AST 30.9 ALT 18.9 Alkaline Phosphatase 68.7 Troponin I 0.017 NT-Pro-B Natriuret Pep 922 H Total Protein 7.33 Albumin 4.02 Globulin 3.31 Albumin/Globulin Ratio 1.21 TSH 1.090 Urine Color Yellow Urine Clarity Clear Urine pH 7.0 Ur Specific [place] 1.015 Urine Protein Negative Urine Glucose (UA) Negative Urine Ketones Negative Urine Blood Trace-intact H Urine Nitrite Negative Urine Bilirubin Negative Urine Urobilinogen 0.2 Ur Leukocyte Esterase Negative Urine Microscopic RBC 2-5 Ur Squamous Epith Cells 2-5 01/31/25 04:54 WBC 9.00 RBC 3.55 L Hgb 10.9 L Hct 33.8 L MCV 95.2 MCH 30.7 MCHC 32.2 RDW Coeff of Ashwin 12.8 Plt Count 284 Immature Gran % (Auto) 0.2 Neut % (Auto) 54.0 Lymph % (Auto) 35.0 [place] % (Auto) 8.8 Eos % (Auto) 1.4 Baso % (Auto) 0.6 Neut # (Auto) 4.9 Lymph # (Auto) 3.2 [place] # (Auto) 0.8 Eos # (Auto) 0.1 Baso # (Auto) 0.1 Immature Gran # (Auto) 0.0 Sodium 137.5 Potassium 3.53 Chloride 99.2 Carbon Dioxide 32.7 H Anion Gap 9.13 BUN 21.6 H Creatinine 1.21 Estimated GFR (MDRD) 42.00 BUN/Creatinine Ratio 17.85 Glucose 134.5 H Calcium 8.61 Magnesium 2.00 Total Bilirubin 0.35 AST 25.1 ALT 16.7 Alkaline Phosphatase 65.2 Troponin I NT-Pro-B Natriuret Pep Total Protein 6.73 Albumin 3.73 Globulin 3.00 Albumin/Globulin Ratio 1.24 TSH Urine Color Urine Clarity Urine pH Ur Specific [place] Urine Protein Urine Glucose (UA) Urine Ketones Urine Blood Urine Nitrite Urine Bilirubin Urine Urobilinogen Ur Leukocyte Esterase Urine Microscopic RBC Ur Squamous Epith Cells Imaging Imaging: CHEST RADIOGRAPH INDICATION: Palpitations COMPARISON: Chest radiograph(s) 02/19/2024 at 3110 TECHNIQUE: AP portable chest radiograph(s). 1 view(s) total. FINDINGS: Osteoarthrosis of spine right glenohumeral joint.Lungs are clear with no focal consolidations, pneumothoraces or pleural effusions. Cardiomediastinal silhouette is within normal limits. IMPRESSION: No acute cardiopulmonary process. Review Review Statement: I have independently reviewed and interpreted the labs/EKGs/imaging that were ordered by the ER provider. I have reviewed all outside records that are available currently in our EMR including imaging/notes/labs from previous visits. Plan Reccomendations/Plan: 1. A fib, RVR - resolved with 1 dose of Cardizem IVP in ER. Increase metoprolol to 50 bid. Tele. Replace mag and K. TSH normal. Cont eliquis. 2. Hypomagnesemia - 1.5. 2 gm mag rider ordered. Resolved today. 3. Hypothyroidism - TSH normal, cont home med 4. Hypertension - Cont home meds 5. GERD - Cont home meds Patient's magnesium was noted to be 1.5. She was given 2 g rider and it improved to 2.0. She was given potassium supplement with a goal of 4. Patient's metoprolol dose was increased to 50 mg twice a day. She has been tolerating this well. Heart rate remains in the 80s. She has not received any IV agents since being in the ER. She has a lot of anxiety about having more of these episodes. Orthostats were normal. She was ambulated out into the hallways and back to her room without any significant rise in her heart rate. She states she is feeling much better today she just overall worries about what to do if this happens again. We discussed in detail what her heart rate should be and when to be concerned. She knows she can return to the ER at any time. She denies having any chest pain or shortness of breath. She does have a pill pack that she recently filled, will reach out to her pharmacy in regards to changing her metoprolol dosage. She states she also has a follow-up with her provider on Sunday this coming week. Will discharge back to the assisted living today. 1. A fib, RVR - resolved 2. Hypomagnesemia - resolved 3. Hypothyroidism 4. Hypertension 5. GERD Additional Planning: Case discussed with ED Physician, Dr. Sim. DVT Prophylaxis: Eliquis Advanced [facility] Plannin minutes spent discussing advance care planning. Admit to: Obs Discussed Plan of Care with Dr. Low Wasserman. Review With Patient Reviewed with Patient and Family: Patient and family have been counseled on condition and care plan and have no immediate questions. I have personally discussed and reviewed the patient's visit/current labs/imaging/decision making with Dr. Low Wasserman, my supervising attending. Total number of minutes spent with patient [85] min. More than 50% of the time spent with this patient was devoted to counseling and coordination of care. Time of Admission:01/30/25 15:28 Time of Discharge: 01/31/25 0930 Discharge Plan Discharge Discharge Orders: Discharge Patient (ONCE); Ordered 01/31/25 Ordered By: HANK FALL Activity Restrictions/Additional Instructions: DISCHARGE TO HOME/ASSISTED LIVING DX: A FIB RVR, HYPOMAGNESEMIA PHARMACY: II YOUR METOPROLOL DOSE HAS BEEN INCREASED (DOUBLED) TO HELP CONTROL YOUR HEART RATE FOLLOW UP WITH PCP SCHEDULED RETURN WITH WORSENING SYMPTOMS Patient Disposition: DISCHARGE TO ASSIST LIVING Prescriptions: New metoprolol tartrate 50 mg tablet 50 mg PO BID Qty: 60 0RF Continued potassium chloride 10 mEq capsule, extended release 10 meq PO DAILY allopurinol 100 mg tablet 100 mg PO DAILY levothyroxine 125 mcg tablet 125 mcg PO DAILY buspirone 10 mg tablet 10 mg PO 3XD colchicine 0.6 mg tablet 0.6 mg PO DAILY PRN (Reason: gout flare) losartan-hydrochlorothiazide 100-12.5 mg tablet 1 tab PO DAILY Eliquis 5 mg tablet 5 mg PO 2XD omeprazole 20 mg Capsule,Delayed Release(Dr/Ec) 20 mg PO DAILY furosemide 20 mg tablet 20 mg PO DAILY fluticasone propionate 50 mcg/actuation spray,suspension 1 spray INTRANASAL ONCE PRN (Reason: allergy symptoms) desvenlafaxine succinate 25 mg tablet extended release 24 hr 25 mg PO DAILY Discontinued metoprolol tartrate 25 mg Tablet 25 mg PO BID Qty: 60 0RF No Action (DME) dilaudid auto-injector 0 .ROUTE .MEDSUPPLY Did you review [place] [employer] ADVISOR for ALL controlled substances?: Not Applicable Discussed opioids are addictive and Narcan is available by prescription or from pharmacy.: No Condition: Stable
[2025-01-31 11:44] VITALS: BP 160/105; PULSE 88
== END 2025-01-31 11:46 | disposition home or self-care (01) ==
LOC: SCU 12:48 → ED 12:48 → SCU 15:45
PROVIDERS: ADMIT Hospitalist; ATTEND Physician Assistant
DX: Z79.01 Long term (current) use of anticoagulants; Z79.899 Other long term (current) drug therapy; K21.9 Gastro-esophageal reflux disease without esophagitis; E03.9 Hypothyroidism, unspecified; I48.91 Unspecified atrial fibrillation; E83.42 Hypomagnesemia; Z51.81 Encounter for therapeutic drug level monitoring; I10 Essential (primary) hypertension